=== PATIENT | female | born 1940 | race Caucasian/White ===

== ENCOUNTER 2020-01-04 05:21 | Inpatient (IN) | payer MEDICARE, SELFPAY ==
--- NOTE | 2020-01-03 08:50 | EKG12_ITS ---
Test Reason : PRE-OP Blood Pressure : / mmHG Vent. Rate : 090 BPM Atrial Rate : 093 BPM P-R Int : 000 ms QRS Dur : 074 ms QT Int : 348 ms P-R-T Axes : 000 -48 079 degrees QTc Int : 425 ms Atrial fibrillation Left axis deviation Nonspecific ST and T wave abnormality Abnormal ECG Confirmed by JAIDEN BENAVIDES, NATACHA ([id number]), production editor NABEEL RAGLAND ([id number]) on 01/04/2020 10:58:20 AM Referred By: Varun Chopra Confirmed By:NATACHA HWANG MD
[2020-01-03 09:04] LABS: Hemoglobin 14.7 g/dL (12.0-15.0); Mean Corp Hgb Conc 32.7 g/dL (32-36); Mean Corpuscular Hgb 29.6 pg (27.0-32.0); Mean Corpuscular Volume 90.7 fL (81-99); Mean Platelet Vol. 11.3 fl (6.2-12.0); Platelet Count 242 K/mm3 (150-450); RBC Distribution Width CV 13.2 % (11.6-14.6); RBC Distribution Width SD 43.8 fl (35.1-43.9); Red Blood Count 4.96 M/mm3 (4.2-5.4); White Blood Count 7.9 K/mm3 (4.4-11.0)
[2020-01-03 09:12] LABS: International Normalized Ratio 1.1; Prothrombin Time (Protime)PT. 13.7 SECONDS (11.7-14.9)
[2020-01-03 09:13] LABS: Partial Thromboplast Time 27.8 Seconds (24.1-36.2)
[2020-01-03 09:43] LABS: Anion Gap 5 (5-15); BUN 19 mg/dL (7-18); BUN/Creat Ratio 15.6 RATIO (10-20); Calcium,Total 9.5 mg/dL (8.5-10.1); Chloride 101 mmol/L (98-107); Creatinine, Serum 1.22 mg/dL (0.55-1.02); EST Glomerular Filtration Rate 45 mL/min (>60); Est Glom Filt Rate - Afr Amer 55 mL/min (>60); Glucose 105 mg/dL (74-106); Potassium 3.5 mmol/L (3.5-5.1); Sodium Level 137 mmol/L (136-145)
[2020-01-03 09:47] LABS: AST(SGOT) 19 U/L (15-37); Alanine Aminotransfer ALT/SGPT 22 U/L (13-56); Albumin, Serum 3.7 g/dL (3.2-5.0); Alkaline Phosphatase 76 U/L (45-117); Globulin 4.5 g/dL (2.2-4.2); Protein, Total 8.2 g/dL (6.4-8.2); Thyroid Stim Hormone (TSH) 2.94 uIU/mL (0.358-3.74)
[2020-01-04] VITALS (25 sets, daily range): BP systolic 122–158; BP diastolic 53–86; PULSE 61–102; RESP 14–18; TEMP 36.3–36.9; O2SAT 92–99; BMI 29.5
--- NOTE | 2020-01-04 05:49 | HP.PCM_ITS ---
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 Accompanied by: Is patient in pain?: No Allergies erythromycin base Adverse Reaction (Verified 12/28/19 13:47) Nausea/Vom/Diarrhea metronidazole Adverse Reaction (Verified 12/28/19 13:47) Swelling Medications Calcium Carb/Vitamin D [Os-Juanito 500MG + D] 1 tab PO BIDCM 08/12/14 [History Confirmed 12/28/19] Levothyroxine Sodium [Levoxyl] 50 mcg PO DAILY 08/12/14 [History Confirmed 12/28/19] Lorazepam [Ativan] 0.5 mg PO BID PRN PRN 08/12/14 [History Confirmed 12/28/19] Multivitamins,Therapeutic [Multivitamin] 1 tab PO DAILY 08/12/14 [History Confirmed 12/28/19] apixaban 5 mg tablet 5 mg PO BID 12/28/19 [History Confirmed 12/28/19] aspirin 81 mg tablet,delayed release 81 mg PO DAILY 12/28/19 [History Confirmed 12/28/19] ergocalciferol (vitamin D2) 1,250 mcg (50,000 unit) capsule 1,250 mcg PO QWEEK 12/28/19 [History Confirmed 12/28/19] metoprolol tartrate 50 mg tablet 50 mg PO DAILY 12/28/19 [History Confirmed 12/28/19] nifedipine 60 mg tablet,extended release 24 hr 60 mg PO DAILY 12/28/19 [History Confirmed 12/28/19] pravastatin 20 mg tablet 10 mg PO QHS tab 12/28/19 [History Confirmed 12/28/19] triamterene 37.5 mg-hydrochlorothiazide 25 mg capsule 1 cap PO DAILY 12/28/19 [History Confirmed 12/28/19] [facility] Medical History (Updated 12/28/19 @ 15:[address] Varun Chopra MD) Carotid stenosis, symptomatic w/o infarct (Acute) Arthritis (Acute) Atrial fibrillation (Acute) Carotid stenosis (Acute) Heart disease (Acute) History of breast cancer (Acute) TIA (transient ischemic attack) (Acute) Thyroid disease (Acute) COPD (chronic obstructive pulmonary disease) (Chronic) Hypertension (Chronic) Surgical History (Updated 12/28/19 @ 13:41 by Estephanie Oliveira) History of appendectomy (Acute) History of left total mastectomy (Acute) Family History (Updated 12/28/19 @ 13:44 by Estephanie Oliveira) Sister Arthritis Mother Diabetes CVA (cerebral vascular accident) Father Heart disease Diabetes Brother Diabetes Social History (Updated 12/28/19 @ 15:[address] Varun Chopra MD) Smoking Status: Former smoker alcohol intake: never substance use type: does not use HPI HPI HPI: ALEXANDREA GAN, is a 79 F who presents to the office today for surgical consultation regarding symptomatic progressive stenosis of her right extracranial internal carotid artery. Over the weekend she had an episode lasting about 20 minutes of transient speech a aphasia. Upon discussing things with there is apparent that this is not the first time that she has had such an event. There is evidence that in 2010 she had concern regarding a TIA involving the right carotid for which she was sent to [facility]. On March 03, [address] angiography the neck which showed heavily calcified plaque in the proximal right internal carotid with 65 to 70% stenosis at that time. On September 18, 2014 at [place] she had a MR I of the brain and MRA of the brain and carotids. There was felt to be 50% stenosis of the right internal carotid. In [address] angiography of the right neck showing 55 to 70% narrowing of the right carotid. She had carotid duplex imaging additionally November 2016 suggesting almost 70% stenosis of the right internal carotid. After this most recent episode on December 10, 2019 at [facility] she had carotid duplex imaging suggesting peak systolic velocity within the proximal right internal carotid at 364 cm/s with end-diastolic velocity of 62. This was felt be greater than 70% stenosis. On the left the internal carotid artery is felt to be less than 50% stenosis. According to the patient she was initiated on Eliquis therapy starting December 13, 2019. 5 mg twice daily. She was chronically on metoprolol and apparently started taking pravastatin on November 22, 2019. She has been on low strength aspirin therapy. She states that her original episode is 1 of not being able to speak though she could hear and try to project the words. This lasted about 20 minutes. She states that intermittently she has just not felt well since that time but she is very nonspecific. She states that during the episode she had weakness of her left hand and thumb. She denies chest pain or shortness of breath. No fever or chills. No weight loss. She denies any history of myocardial infarction. The patient is referred by her primary care physician Dr. Mancia and a written copy of my surgical consult and recommendations will be returned to him HPI HPI HPI: ALEXANDREA GAN, is a 79 F who presents to the office today for ROS General General: Yes fatigue and breast cancer; no weight change, appetite, colon cancer or weakness HEENT HEENT: No difficulty swallowing, eye injury, eye surgery, swollen glands or hoarseness Endo Endocrine: Yes thyroid disease; no diabetes mellitus, thyroid cancer, Hair loss, heat intolerance or cold intolerance Skin Skin: No rash or changing moles Breast Breast: No left breast lump, right breast lump, nipple discharge, breast pain, abnormal mammogram, abnormal US or breast enlargement Musc Musculoskeletal: No back problems, arthritis, rheumatoid arthritis, gout or joint pain Cardio Cardiovascular: Yes heart disease, atrial fibrillation and high blood pressure; no murmur, pacemaker, heart attack, heart stent, palpitations, shortness of breat with exertion or chest pain Psych Psychiatric: No depression, anxiety or hearing voices Resp Respiratory: No shortness of breath, No sleep apnea, No cough, Yes COPD, No asthma, No emphysema, No wheezing Gastro Gastrointestinal: No abdominal pain, No nausea or vomiting, No diarrhea, No constipation, No blood in stool, No acid reflux, No hemorrhoids, No ulcers, No gallbladder problem, No black,tarry stools Gwyn Hematologic: Yes blood thinners, No blood disorders, No bleeding, No anemia, No blood clots Neuro Neurologic: No system reviewed and no additional complaints, except as docu, No as per HPI, No abnormal walking, No abnormal hearing, No abnormal movements, No abnormal speech, No behavioral changes, No burning sensations, No confusion, No seizure-like activity, No unsteadiness, No dizziness, No localized weakness, No frequent falls, No headache(s), No lack of coordination, No loss of vision, No memory loss, No numbness, No other visual disturbances, No radiating pain, No restless legs, No sensory deficit, No fainting, No tingling, No tremor(s), No weakness, Yes other (stroke/TIA) Exam Const General: cooperative, healthy appearing, comfortable, no acute distress Nutritional Appearance: average body habitus Orientation: alert, awake HENDE Head: normal to inspection Eyes General: appearance normal, both eyes and all related structures Neck Neck: normal visual inspection Other: 2+ carotid pulses bilaterally. 3/6 bruit on the right. Chest Breast Palpation: No nipple discharge Other: Evidence of left mastectomy Resp Effort & Inspection: normal respiratory effort Auscultation: clear to auscultation bilaterally Cardio Rate: regular rate Rhythm: regular rhythm Heart Sounds: no murmurs GI Palpation: soft, no hepatosplenomegaly Auscultation: normal bowel sounds Skin Other: Area of ecchymosis right dorsal distal forearm Neuro Cognition: normal cognition Extrem General: no calf tenderness Psych Affect: normal affect Assessment & Plan Problems 1. Symptomatic stenosis of right carotid artery without infarction I65.21 Plan It seems that the patient has progressive right carotid stenosis and progressively symptomatic. As best I can tell from her history she had symptoms dating back to 2010 but by her report it was suggested to her that she did not require surgical intervention at that setting. Clearly based upon the imaging that on provided she has had significant progressive stenosis of her right internal carotid and that would appear to correlate with her left hand weakness. I propose for her a right carotid endarterectomy with patch angioplasty and I have discussed technique, benefit, risk and alternatives. Absolutely no guarantees of success have been offered. We compared and contrasted this procedure with carotid artery stenting. The patient is aware that I do not perform that procedure. She has been offered opportunity for referral elsewhere. She is elected to stay locally. We will have her hold her Eliquis for 48 hours preoperatively. She will be maintained on her aspirin therapy. She is aware that I anticipate utilizing an arterial line for monitoring. She has had an opportunity to ask and have questions answered. We will schedule and expedite her care. I very much appreciate the kind opportunity of assisting with her surgical management. Cc: Dr.Latouf Varun Chopra M.D., F.A.C.S. Coding Level of Care Code 05440 Diagnoses Symptomatic stenosis of right carotid artery without infarction I65.21 ??Laterality: right I have re-examined the patient. There are no clinical changes since date of exam. Procedure Criteria Procedure Type: Essential Procedure Essential: Yes Criteria Statement: On 09/28/2019 the [place] Department of [facility] ([facility]) Public Order signed by [facility] Director Virginia Joseph M.D., regarding the Management of Non-Essential Surgeries and Procedures for the purpose of preserving Personal Protective Equipment (PPE) and critical hospital capacity and resources within [place] went into effect as of 09/29/2019 at 5:00PM. According to the [facility] Public Order: This action will remain in full force and effect until the State of Emergency declared by the Governor no longer exists or the Director of the [facility] rescinds or modifies this Order. This [facility] order stated all non-essential or elective surgeries and procedures that utilize PPE should be delayed unless there is undue risk to the current or future health of a patient. After reviewing the aforementioned [facility] Public Order and the patient's clinical case, I have determined that the scheduled procedure meets the criteria to go forward. Risk to Patient if Procedure Delayed: Threat to patient's life if surgery or procedure is delayed
--- NOTE | 2020-01-04 06:28 | OP.PCM_ITS ---
Problem List (1) Carotid stenosis, symptomatic w/o infarct Status: Acute Qualifiers: Report of Operation Date of Procedure: 01/04/20 Pre-Operative Diagnosis: Symptomatic right internal carotid high-grade severe stenosis Post-Operative Diagnosis: Same Surgery/Procedure Performed:: Right radial arterial line placement. Right carotid endarterectomy with bovine patch angioplasty. Vascu-Guard 0.8 x 8 cm patch. Reference number the [id number]. Lot number [id number]. PN number [id number] Description of Surgical Findings:: At the bedside Michael test performed demonstrating adequate inflow. The right wrist was gently extended prepped with Betadine. Under ultrasound guidance 1% lidocaine was instilled for local anesthetic. A total of 0.7 cc was used. Then under ultrasound guidance a 20-gauge inch cath was inserted. Seldinger wire was used to advance it. It was secured to the skin. It was attached to pressure tubing. Good waveform was obtained. OpSite dressing a folded 4 x 4 and Brianna wrap applied. The hand was viable at the completion pink and warm patient had no complaints. She was subsequently taken to the operating for planned right carotid endarterectomy. Timeout and informed consent was obtained. The patient underwent general endotracheal intubation anesthesia. Ancef 2 g were given intravenously. The right neck was sterilely prepped and draped. An oblique incision was made along the anterior border of the sternocleidomastoid. Sharp dissection was carried down through the subcutaneous tissue. Hemostasis attained with electrocautery where indicated. The sternocleidomastoid was reflected laterally. The external jugular vein was ligated with 3-0 Vicryl ligatures. Dissection was formed directly down upon the carotid bulb. The internal jugular vein was retracted laterally. Lymphatic vessels and side veins were secured with hemoclips. Sharp and blunt dissection was used to identify the internal carotid common carotid and external carotid. The common carotid was secured with a Sutton tie of Dacron tape. The internal carotid with a Dacron tape and Lety tourniquet. The external carotid with a vessel loop. The superior thyroid with a Sutton tie 3-0 Vicryl. The patient then received 8000 units of heparin. After adequate circulation time peripheral vascular clamps were placed on the internal common and external carotid. 11 blade was used to make an atriotomy this was very difficult due to the dense calcific nature of the carotid bulb. This was extended with Sutton scissors. A #10 USCI style shunt was placed cephalad and proximally. Time to place the shunt approximately 3 minutes. Then an endarterectomy was performed layer of the external elastic lamina. It was sharply transected proximally it was carefully feathered at the internal carotid this was difficult because of posterior plaque and it was continued to extend. I had to make a couple adjustments and continue to shave that plaque. I placed two 7-0 Prolene sutures to help secure it. A inversion enterectomy had been performed of the external carotid. Further debris was carefully removed with fine forceps. The vessel was irrigated. A Vascu-Guard bovine patch 0.8 x 8 cm was shaped deformed. Patch angioplasty was formed with a running 6-0 Prolene. Prior to completion the vessel was irrigated and the shunt was removed there was good retrograde flow from the internal/external carotids and good antegrade flow from the common. The patch angioplasty was completed. Initial flow was instituted from the external carot id common carotid find the internal carotid. Hemostasis was assured with a couple 7-0 Prolene sutures. Hemostasis was now nicely intact there was good flow. The cerebral oximetry remained constant throughout. Patient then received aliquots total 20 mg of protamine. The wound was closed with a deep layer of interrupted 3-0 Vicryl a running layer 3-0 Vicryl for platysma and then a running septic or 5-0 Vicryl for the subdermal tissues. Ashley-incisional area was anesthetized with 0.5% Marcaine total 10 cc. Steri-Strip Telfa and tape dressings applied. Sponge and instrument and needle counts were reported to the surgeon to be correct. Blood loss 200 cc. She appeared awake neurologically intact on the table and was taken to the recovery room satisfactory edition no apparent complication. Specimen plaque. Drains none. Blood loss 200 cc. Type of Anesthesia:: General Anesthesiologist: Soren Rabago
--- NOTE | 2020-01-04 06:32 | DCINST_ITS ---
Discharge Diet: Light diet - advance as tolerated - if you have questions about your diet instructions, please talk to you doctor. Discharge Activity: May Not Drive - for 1 week or while taking narcotic pain medicine. May shower in (days): 3 - May shower on Friday Lifting Restrictions: 10 pounds Call your doctor if your incision/area has: Continuous Slow Oozing, Sudden Increased Bleeding, Increased Pain/ Swelling, Increased Redness, Foul Smelling Discharge Call your doctor if you observe: Fever of 101 or Higher Suture Line Care: Avoid Pulling/Pushing, Avoid Pinching/Bending Additional Dressing/Incision Instructions:: Leave the Steri-Strips in place for 1 week. You may reapply dry gauze and tape as needed to protect the incision from clothing. [id number] pain medication like acetaminophen or Tylenol or ibuprofen or Advil or Aleve can be utilized for pain. You may resume your daily low-dose aspirin therapy. You may resume your Eliquis therapy on Friday, January 07, 2020 Allergies/Adverse Reactions: Allergies erythromycin base Adverse Reaction (Verified 12/31/19 08:07) Nausea/Vom/Diarrhea metronidazole Adverse Reaction (Verified 12/31/19 08:07) Swelling Medications to take at Discharge Calcium Carb/Vitamin D [Os-Juanito 500MG + D] 1 tab PO BIDCM 08/12/14 Levothyroxine Sodium [Levoxyl] 50 mcg PO DAILY 08/12/14 Lorazepam [Ativan] 0.5 mg PO BID PRN PRN 08/12/14 Multivitamins,Therapeutic [Multivitamin] 1 tab PO DAILY 08/12/14 aspirin 81 mg tablet,delayed release 81 mg PO DAILY 12/28/19 ergocalciferol (vitamin D2) 1,250 mcg (50,000 unit) capsule 1,250 mcg PO MO 12/28/19 metoprolol tartrate 50 mg tablet 50 mg PO DAILY 12/28/19 nifedipine 60 mg tablet,extended release 24 hr 60 mg PO DAILY 12/28/19 pravastatin 20 mg tablet 10 mg PO QHS tab 12/28/19 triamterene 37.5 mg-hydrochlorothiazide 25 mg capsule 1 cap PO DAILY 12/28/19 Acetaminophen [Acetaminophen Extra Strength] 500 mg PO Q6H PRN PRN 12/31/19 Elliquis 5 mg PO BID 12/31/19 Loperamide [Imodium] 2 mg PO Q4H PRN PRN 12/31/19 Orders to be completed after discharge: 12 Lead EKG [[facility]] Time Frame: 12/31/19, Location: None Selected Primary Care Physician: Charmaine Mancia MD [Primary Care Provider] - Test Results: Test results from this visit will be discussed in further detail at your follow- up appointment, if applicable. Please Follow Up With: Varun Chopra MD - [phone] When: Call to make an appointment to be seen in about 10 days.
[2020-01-04 06:40] LABS: ACT Activated Clotting Time 120 sec (74-137)
[2020-01-04] MEDS: Lactated Ringers 1,000 ML 30 ML IV ×3 (06:40→12:22)
[2020-01-04] MEDS: Cefazolin 2 GM in 0.9% Normal Saline 100 ML IV (07:29)
--- NOTE | 2020-01-04 07:30 | PLAQ_PTH ---
PATIENT: ALEXANDREA GAN I LOC: [facility] U#:[id number] AGE/SX: 79/F ROOM: IL313 RE01/04/[address]: Dr. Varun Chopra MD : [id number] BED: 1 DIS: 01/05/2020 SPEC #: [id number] RECD: 01/04/20 09:30 STATUS: EDY PRADOPorfirio #: [id number] DESIRE: 01/04/20 07:[address]: Varun Chopra DEPT: SURGICAL PATHOLOGY RECD BY: Marcie Yadav ENTERED: 01/04/20 09:58 SP TYPE: PLAQUE OTHR DR: Dr. Charmaine Mancia MD Tissues: PLAQUE Procedures: Decalcification bone/plaque Surgery Specimen Level III HEADER OPERATION: Right carotid endarterectomy with patch angioplasty PRE-OP DIAGNOSIS: Symptomatic stenosis of right carotid artery TISSUE SUBMITTED: Right carotid artery plaque MICROSCOPIC DIAGNOSIS Right carotid artery plaque, endarterectomy: Atherosclerotic tissue with focal calcifications (plaque). SJ:dina 01/07/20 GROSS DESCRIPTION Received in fixative is one container labeled with the patient's name and designated carotid artery plaque. The specimen consists of an elongated fragment of yellow-swann calcific tissue measuring 2.7 cm in length and 0.6 cm in diameter. The specimen is sectioned and totally submitted in one cassette after decalcification. / AM:dina 01/04/20 TC:5 CPT: 25688, 72518
[2020-01-04 08:46] LABS: ACT Activated Clotting Time 257 sec (74-137)
[2020-01-04] MEDS: Heparin Injection (Vial) 5,000 UNIT/ML VIAL 5000 UNIT (09:00)
[2020-01-04 09:21] LABS: ACT Activated Clotting Time 230 sec (74-137)
[2020-01-04] MEDS: Bupivacaine Mpf 0.5% 30 ML VIAL (09:32)
--- NOTE | 2020-01-04 10:34 | SUR.PHASEI ---
0950 PT IN PACU POST RT CAROTID , NEURO ASSESSMENT PERFORMED. RT SIDE TONGUE SLIGHT DEVIATION NOTED.
[2020-01-04] MEDS: Triamterene 37.5MG/Hctz 25MG Capsule 1 CAP PO (15:17)
[2020-01-04] MEDS: Fluconazole 100 MG Tablet PO (15:17)
[2020-01-04] MEDS: NIFEdipine 60 MG Tablet PO (15:17)
[2020-01-04] MEDS: Metoprolol Tartrate 50 MG Tablet PO (15:18)
[2020-01-04] MEDS: Cefazolin 1 GM/50 ML BAG IV (16:04)
[2020-01-04] MEDS: Pravastatin 20 MG Tablet 10 MG PO (22:02)
[2020-01-05] VITALS (10 sets, daily range): BP systolic 121–144; BP diastolic 60–79; PULSE 60–100; RESP 16–18; TEMP 36.6–36.9; O2SAT 2–97
[2020-01-05] MEDS: Cefazolin 1 GM/50 ML BAG IV (00:26)
[2020-01-05] MEDS: Lactated Ringers 1,000 ML 30 ML IV (00:29)
[2020-01-05] MEDS: Levothyroxine 50 MCG Tablet PO (05:55)
--- NOTE | 2020-01-05 05:57 | PCM.CAROT ---
General Carotid Note - Subjective Post-Op Day #: 1 - Objective Vital Signs Temp Pulse Resp BP Pulse Ox 98.4 F 72 16 121/60 H 2 01/05/20 02:00 01/05/20 02:00 01/05/20 02:00 01/05/20 02:00 01/05/20 03:01 Laboratory Tests Past 24 Hrs 01/04/20 01/04/20 01/04/20 06:31 08:33 09:10 Activated Clotting Time 120 257 H 230 H Neck: Supple, Trachea Midline Neurological: - - No weakness right hypoglossal. Speech is clear Cardiovascular: Regular rate, Regular Rhythm - Patient noticed to be on nasal prong oxygen overnight. She has ambulated to the bathroom. She needs to be tested with ambulation in the halls. Plan discharge this morning.
[2020-01-05] MEDS: 0.9% Saline Lock 10 ML Syringe IV (06:49)
[2020-01-05] MEDS: Calcium Carb/Vitamin D 1 TABLET Tablet PO (08:38)
[2020-01-05] MEDS: Aspirin E.C. 81 MG Tablet PO (08:38)
[2020-01-05] MEDS: Metoprolol Tartrate 50 MG Tablet PO (08:38)
[2020-01-05] MEDS: NIFEdipine 60 MG Tablet PO (08:40)
[2020-01-05] MEDS: Triamterene 37.5MG/Hctz 25MG Capsule 1 CAP PO (08:40)
--- NOTE | 2020-01-05 08:51 | CASEMGMT ---
Addendum entered by Pritesh Tidwell 01/05/20 13:07: [facility]: PH: [phone] Addendum entered by Pritesh Tidwell 01/05/20 13:00: Spoke with [facility]. They are able to accept pt and start of care will be tomorrow 01/05. [facility] made aware that pt's daughter would like to be contacted. Call placed to Janna, pt's daughter, and she was made aware [facility] is able to accept pt. She was provided with contact number for [facility] and made aware they will be contacting her. Addendum entered by Pritesh Tidwell 01/05/20 11:17: Spoke w/pt's daughter, Janna, re: Home oxygen. She was made aware portable O2 tank will be delivered to pt's room prior to discharge and then arrangements will be made for delivery to the home. Janna requests that [facility] contact her re: home delivery. Janna voiced concerns re: pt's COPD, new oxygen, Hx: A-fib, dressing to her neck from the surgery, and medications and Janna states she would like C for pt. Janan stated, We can't be there with her 03/02. Janna made aware that C nurse would typically only make Home visits once a week, but that they can do teaching/reviewing of medications and teaching re: diagnosis. Janna states she does want HHC for her mother. Her 1st choice of HHC is [facility]. Janna made aware [facility] only goes 30 min radius and pt may not be in the area they covered. Janna states if [facility] is not able to take her, that she has no other preferences as long as they are able to accept pt's insurance. Janna also inquiring about pulmonology consult. Janna made aware to talk with pt's PCP re: this. RN CM to room to talk with pt. Pt made aware her daughter would like HHC for her and she agreeable to HHC and states has no preference of HHC agency. Call placed to [facility] and they were made aware to call pt's daughter, Janna, to make arrangements for Home O2 delivery. Call placed to [facility] and spoke with Cintia. Pt's address/location is too far and they do not service her area. Call placed to [facility] in [place] and referral made. Referral packet faxed to them at this time. Addendum entered by Pritesh Tidwell 01/05/20 10:07: Ambulatory pulse ox has been completed and pt qualifies for O2 @ 2L/M with exertion. Pt provided list of local DME companies and [facility]. Script obtained from Dr Chopra for O2, faxed to [facility] along w/demographics and insurance info. Call placed to [facility] and she was made aware pt is discharging today. Awaiting oxygen delivery to room. RN, Theron, dustin. Original Note: RN CM HYDRO OPERATOR CM to room to meet with patient for initial transition planning/care coordination assessment. RAAD TAPIA introduced self and role at [facility]. Pt voices understanding and consents to assessment at this time. Pt resting in bed in no distress at this time. Pt is A/O at this time and answers all questions appropriately. Care providers, pharmacy, and demographics verified/updated at this time. PCP: Dr Mancia Specialists: Dr Chantal Chopra Preferred Pharmacy: [facility] Retail Insurance: [employer] Prescription Benefit: Yes Living Will/HPOA: Has both LW and Healthcare POA, who is her daughter, Janna Alicia LNOK: DtrJanna Living Arrangements: Lives alone. Independent. Transportation: Boyfriend or daughter DME: States has the following DME: [employer]. Ambulates w/out DME Pt states no need for further DME at this time. HHC/SNF: Hx [facility] a few years ago. No history of HHC. Denies needs. Pt wishes to return home and states has no concerns with going home at time of discharge. CM to follow for home oxygen needs and any further discharge planning/needs. Pt voices no further concerns/needs at this time. Advised pt to ask for CM if any further questions/concerns/needs arise. Voices understanding. PLAN: Home Will need amb pulse ox prior to discharge. Theron RN, aware. Eun CARCAMO RN, CM
--- NOTE | 2020-01-05 09:38 | PHA.DC.MR ---
Pharmacy Service has performed discharge medication reconciliation for this patient. The patient's discharge medication list was reviewed for discrepancies and discrepancies were resolved. Home Medications Calcium Carb/Vitamin D [Os-Juanito 500MG + D] 1 tab PO BIDCM 08/12/14 Levothyroxine Sodium [Levoxyl] 50 mcg PO DAILY 08/12/14 Lorazepam [Ativan] 0.5 mg PO BID PRN PRN 08/12/14 Multivitamins,Therapeutic [Multivitamin] 1 tab PO DAILY 08/12/14 aspirin 81 mg tablet,delayed release 81 mg PO DAILY 12/28/19 ergocalciferol (vitamin D2) 1,250 mcg (50,000 unit) capsule 1,250 mcg PO MO 12/28/19 metoprolol tartrate 50 mg tablet 50 mg PO DAILY 12/28/19 nifedipine 60 mg tablet,extended release 24 hr 60 mg PO DAILY 12/28/19 pravastatin 20 mg tablet 10 mg PO QHS tab 12/28/19 triamterene 37.5 mg-hydrochlorothiazide 25 mg capsule 1 cap PO DAILY 12/28/19 Acetaminophen [Acetaminophen Extra Strength] 500 mg PO Q6H PRN PRN 12/31/19 Elliquis 5 mg PO BID 12/31/19 Loperamide [Imodium] 2 mg PO Q4H PRN PRN 12/31/19
--- NOTE | 2020-01-05 11:09 | NURSING ---
Janna Francisco, daughter was called with update, had many questions regarding o2 delivery, she was referred to Case managment and Pritesh called her .,
[2020-01-05] MEDS: Acetaminophen 500 MG Tablet PO (11:30)
== END 2020-01-05 13:40 | disposition home health service (06) | DRG 38 ==
LOC: ACINP 05:23 → MS3 10:13
PROVIDERS: Anesthesiology; Admitting Provider Surgery; PCP Internal Medicine; Referring Provider Surgery; Visit Provider Surgery
PROC: 03CM0ZZ Extirpation of Matter from Right External Carotid Artery, Open Approach (ICD-10-PCS; CPT 35301; principal; 2020-01-04 07:10)
DX: I65.21 Occlusion and stenosis of right carotid artery (principal); I69.854 Hemiplegia and hemiparesis following other cerebrovascular disease affecting left non-dominant side; R47.01 Aphasia; I48.91 Unspecified atrial fibrillation; J44.9 Chronic obstructive pulmonary disease, unspecified; I10 Essential (primary) hypertension; E07.9 Disorder of thyroid, unspecified; E78.00 Pure hypercholesterolemia, unspecified; M19.90 Unspecified osteoarthritis, unspecified site; F41.9 Anxiety disorder, unspecified; Z78.0 Asymptomatic menopausal state; Z79.01 Long term (current) use of anticoagulants; Z79.82 Long term (current) use of aspirin; Z79.899 Other long term (current) drug therapy; I69.828 Other speech and language deficits following other cerebrovascular disease; Z85.3 Personal history of malignant neoplasm of breast; Z87.891 Personal history of nicotine dependence
CPT/HCPCS: 36415; 80048; 80076; 84443; 85027; 85347; 85610; 85730; 87635; 88304; 88311; 93005; 99251; G2023; J7040; J7120; A4216; G0463; J2405; U0003

== ENCOUNTER → 2020-02-03 08:49 | Outpatient (CLI) | payer MEDICARE, SELFPAY ==
[2020-01-04 13:46] VITALS: BMI 29.5
--- NOTE | 2020-02-03 08:52 | CDUL_ITS ---
Reason For Study: carotid stenosis Rt. Velocities/BP Prox CCA 95.6/18.6 cm/sec. Mid CCA 86.5/14.7 cm/sec. Dist CCA 96.9/13.4 cm/sec. Prox ICA 89.1/13.4 cm/sec. Mid ICA 159.5/37.1 cm/sec. Dist ICA 128.4/33.4 cm/sec. Rt. ICA/CCA = 1.8. Prox ECA 124.3/10.8 cm/sec. Rt. Vert. 73.6/13.3 cm/sec. Right Extracranial There is intimal thickening but no significant atherosclerotic plaque noted in the right common carotid artery. There is intimal thickening but no significant atherosclerotic plaque noted in the right internal carotid artery. There is intimal thickening but no significant atherosclerotic plaque noted in the right external carotid artery. Antegrade flow is noted in the right vertebral artery. Procedure Carotid Duplex [id number]. The exam was diagnostic. Exam performed in department. Interpretation Summary Postoperative changes of the right carotid bulb and proximal internal carotid artery with slight tortuosity noted. No hemodynamically significant plaque within the right internal carotid artery with 50 to 69% stenosis based upon velocity. <50% stenosis right external carotid Patent, antegrade right vertebral Ordering Physician: Varun Chopra Performed By: Dayday Nair RVT and Student
== END ==
PROVIDERS: PCP Internal Medicine; Referring Provider Surgery; Visit Provider Surgery
DX: I65.23 Occlusion and stenosis of bilateral carotid arteries (principal)
CPT/HCPCS: 93882

== ENCOUNTER → 2021-01-17 08:49 | Outpatient (CLI) | payer MEDICARE, SELFPAY ==
[2020-01-04 13:46] VITALS: BMI 29.5
--- NOTE | 2021-01-17 08:53 | CDU_ITS ---
Reason For Study: Bilateral carotid stenosis Rt. Velocities/BP Lt. Velocities/BP Prox CCA 78.6/13.4 cm/sec. Prox CCA 58.1/11.4 cm/sec. Mid CCA 78.6/12.1 cm/sec. Mid CCA 64.2/13.9 cm/sec. Dist CCA 86.5/21.3 cm/sec. Dist CCA 66.7/15.1 cm/sec. Prox ICA 90/37.1 cm/sec. Prox ICA 59.3/12.6 cm/sec. Mid ICA 157.6/55.3 cm/sec. Mid ICA 80.2/22.5 cm/sec. Dist ICA 117.4/35.3 cm/sec. Dist ICA 63.9/17.6 cm/sec. Rt. ICA/CCA = 2.01. Lt. ICA/CCA = 1.20. Prox ECA 95.6/10.8 cm/sec. Prox ECA 134.5/13.8 cm/sec. Rt. Vert. 76.2/20.1 cm/sec. Lt. Vert. 63/17.6 cm/sec. Right Extracranial There is intimal thickening but no significant atherosclerotic plaque noted in the right common carotid artery. There is homogeneous, smooth atherosclerotic plaque noted in the right internal carotid artery. There is intimal thickening but no significant atherosclerotic plaque noted in the right external carotid artery. Antegrade flow is noted in the right vertebral artery. Left Extracranial There is heterogeneous, irregular atherosclerotic plaque noted in the left common carotid artery. There is heterogeneous, irregular atherosclerotic plaque noted in the left internal carotid artery. There is heterogeneous, irregular atherosclerotic plaque noted in the left external carotid artery. Antegrade flow is noted in the left vertebral artery. Procedure Carotid Duplex [id number]. This is a Carotid Duplex examination using B-mode, color flow and specral Doppler. Exam performed in department. VL/Carotid Duplex Ultrasound Interpretation Summary Postoperative changes of the right carotid bulb and proximal internal carotid a rtery with 50 to 69% stenosis of the mid internal carotid artery Less than 50% stenosis right external carotid artery Irregular calcific plaque in the proximal left internal carotid artery and exte rnal carotid artery Less than 50% stenosis left internal carotid artery Less than 50% stenosis left external carotid artery Patent and antegrade vertebrals bilaterally No change of the right internal carotid artery from the previous examination of February 03, 2020 Ordering Physician: Varun Chopra Referring Physician: Charmaine Mancia Performed By: Neha Anderson RVT
== END ==
PROVIDERS: PCP Internal Medicine; Referring Provider Surgery; Visit Provider Surgery
DX: I65.23 Occlusion and stenosis of bilateral carotid arteries (principal)
CPT/HCPCS: 93880

== ENCOUNTER → 2022-03-01 | Outpatient (CLI) | payer MEDICARE, SELFPAY ==
--- NOTE | 2022-03-01 08:55 | CDU_ITS ---
Reason For Study: CAROTID STENOSIS Rt. Velocities/BP Lt. Velocities/BP Prox CCA 71.2/15.1 cm/sec. Prox CCA 67.7/13.8 cm/sec. Mid CCA 70.3/15.5 cm/sec. Mid CCA 76.4/10.5 cm/sec. Dist CCA 67.7/12.9 cm/sec. Dist CCA 77.5/13.8 cm/sec. Prox ICA 108.9/30.3 cm/sec. Prox ICA 83.1/14.9 cm/sec. Mid ICA 163.1/48.0 cm/sec. Mid ICA 76.5/24.8 cm/sec. Dist ICA 114.3/28.5 cm/sec. Dist ICA 72.1/19.3 cm/sec. Rt. ICA/CCA = 163.1/70.3=2.3. Lt. ICA/CCA = 83.1/76.4=1.1. Prox ECA 73.5/6.5 cm/sec. Prox ECA 121.6/13.9 cm/sec. Rt. Vert. 71.0/14.9 cm/sec. Lt. Vert. 62.2/18.2 cm/sec. Right Extracranial There is intimal thickening but no significant atherosclerotic plaque noted in the right common carotid artery. There is homogeneous, smooth atherosclerotic plaque noted in the right internal carotid artery. There is intimal thickening but no significant atherosclerotic plaque noted in the right external carotid artery. Antegrade flow is noted in the right vertebral artery. Left Extracranial There is heterogeneous, irregular atherosclerotic plaque noted in the left common carotid artery. There is heterogeneous, irregular atherosclerotic plaque noted in the left internal carotid artery. There is heterogeneous, irregular atherosclerotic plaque noted in the left external carotid artery. Antegrade flow is noted in the left vertebral artery. Procedure Carotid Duplex [id number]. The study was technically difficult. Exam performed in department. VL/Carotid Duplex Ultrasound Interpretation Summary Postoperative changes of the right carotid bulb and proximal internal carotid a rtery with smooth plaque noted and 50 to 69% stenosis. Less than 50% stenosis right external carotid artery Irregular calcific plaque at the proximal left internal carotid artery with les s than 50% stenosis Less than 50% stenosis left external carotid artery Patent and antegrade vertebral arteries bilaterally Findings are unchanged from the previous examination of January 17, 2021 Ordering Physician: Varun Chopra Referring Physician: Charmaine Mancia Performed By: Estephanie Escalera, TORY, RVT
== END | disposition home or self-care (01) ==
PROVIDERS: PCP Internal Medicine; Referring Provider Surgery; Visit Provider Surgery
DX: I65.23 Occlusion and stenosis of bilateral carotid arteries (principal)
CPT/HCPCS: 93880

== ENCOUNTER → 2023-02-28 | Outpatient (CLI) | payer MEDICARE, SELFPAY | END | disposition home or self-care (01) | PROVIDERS: PCP Internal Medicine; Referring Provider Internal Medicine Critical Care Medicine; Visit Provider Internal Medicine Critical Care Medicine | DX: G47.33 Obstructive sleep apnea (adult) (pediatric) (principal); J44.9 Chronic obstructive pulmonary disease, unspecified | CPT/HCPCS: 95810 ==

== ENCOUNTER → 2023-03-14 | Outpatient (CLI) | payer MEDICARE, SELFPAY ==
--- NOTE | 2023-03-14 13:54 | CDU_ITS ---
Reason For Study: Carotid Stenosis Rt. Velocities/BP Lt. Velocities/BP Prox CCA 78.0/14.7 cm/sec. Prox CCA 80.9/13.4 cm/sec. Mid CCA 71.4/13.8 cm/sec. Mid CCA 52.7/10.9 cm/sec. Dist CCA 58.2/16.3 cm/sec. Dist CCA 58.8/12.2 cm/sec. Prox ICA 85.7/16.3 cm/sec. Prox ICA 89.5/23.2 cm/sec. Mid ICA 87.5/29.0 cm/sec. Mid ICA 65.8/10.9 cm/sec. Dist ICA 96.6/32.7 cm/sec. Dist ICA 77.9/12.0 cm/sec. Rt. ICA/CCA = 1.4. Lt. ICA/CCA = 1.7. Prox ECA 87.8/3.2 cm/sec. Prox ECA 140.5/7.1 cm/sec. Rt. Vert. 35.5/12.8 cm/sec. Lt. Vert. 51.5/14.6 cm/sec. Right Extracranial There is homogeneous, smooth atherosclerotic plaque noted in the right common carotid artery. There is heterogeneous, smooth atherosclerotic plaque noted in the right internal carotid artery. HX CEA. There is heterogeneous, irregular atherosclerotic plaque noted in the right external carotid artery. Antegrade flow is noted in the right vertebral artery. Left Extracranial There is heterogeneous, irregular atherosclerotic plaque noted in the left common carotid artery. There is heterogeneous, irregular atherosclerotic plaque noted in the left internal carotid artery. There is heterogeneous, irregular atherosclerotic plaque noted in the left external carotid artery. Antegrade flow is noted in the left vertebral artery. Procedure Carotid Duplex [id number]. This is a Carotid Duplex examination using B-mode, color flow and specral Doppler. The exam was diagnostic. The study was technically difficult. Exam performed in department. VL/Carotid Duplex Ultrasound Interpretation Summary Postoperative changes of the right carotid bulb and proximal internal carotid a rtery with smooth plaque noted and less than 50% stenosis Less than 50% stenosis right external carotid artery Irregular calcific plaque at the proximal left internal carotid artery with les s than 50% stenosis Less than 50% stenosis left external carotid artery Patent and antegrade vertebral arteries bilaterally No disease progression from the previous examination of March 01, 2022 Ordering Physician: Varun Chopra Referring Physician: Blanche Montano Performed By: Soren Sheriff RVT
== END | disposition home or self-care (01) ==
PROVIDERS: PCP Internal Medicine; Referring Provider Surgery; Visit Provider Surgery
DX: I65.23 Occlusion and stenosis of bilateral carotid arteries (principal)
CPT/HCPCS: 93880

== ENCOUNTER → 2023-05-14 | Outpatient (CLI) | payer MEDICARE, SELFPAY ==
--- NOTE | 2023-05-15 09:23 | PFT ---
INTRODUCTION: The patient is an 82-year-old female who presents for pulmonary function studies secondary to a diagnosis of COPD. Respiratory therapy reported good patient effort. Bronchodilators were used during testing. INTERPRETATION: Forced expiration spirometry demonstrates the presence of a moderately severe large airways obstructive ventilatory defect. There was no significant response to aerosolized bronchodilators. Spirograms are of good quality but do not plateau indicating slow emptying of the lungs. Body plethysmography was performed and revealed lung volumes to be within normal limits. Diffusing capacity by single breath CO is reduced at 30% of predicted. IMPRESSION: Irreversible moderately severe large airways obstructive ventilatory defect with severe reduction in diffusion capacity.
== END | disposition home or self-care (01) ==
PROVIDERS: PCP Internal Medicine; Referring Provider Internal Medicine Critical Care Medicine; Visit Provider Internal Medicine Critical Care Medicine
DX: J44.9 Chronic obstructive pulmonary disease, unspecified (principal)
CPT/HCPCS: 94060; 94726; 94729

== ENCOUNTER → 2023-07-10 | Outpatient (CLI) | payer MEDICARE, SELFPAY ==
--- NOTE | 2023-07-10 15:34 | MRI_ITS ---
STUDY: MRI BRAIN WITHOUT CONTRAST REASON FOR EXAM: Female, 82 years old. BLURRY VISION ORBITS, NYSTAGMUS TECHNIQUE: Standardized multiplanar fat and water weighted pulse sequences were obtained. MRI examination of the brain obtained with standard protocol including multiplanar multiecho noncontrast imaging. Contrast: No contrast administered COMPARISON: : No relevant prior comparison study available HEMISPHERES, CEREBELLUM AND BRAINSTEM: 1. The cerebral parenchyma, ventricular system, subarachnoid spaces have normal configuration and density. There is a normal gyral pattern. There is normal lovelace/white differentiation. No midline shift.. 2. There is diffuse involutional change and extensive chronic deep white matter disease. No areas fluid restriction or acute ischemic change. No hemosiderin deposition or hemorrhage noted. 3. No intraparenchymal mass, hemorrhage, or acute territorial infarct. 4. The cerebellum, brainstem, basilar and suprasellar cisterns have normal appearance. No Chiari malformation. PITUITARY: Infundibulum and pituitary have normal configuration. Midline structures appear normal. CSF SPACES: Appropriate for age. No hydrocephalus. Basal cisterns are patent. VESSELS: 1. There are normal flow voids noted in the great vessels at the skull base ORBITS AND PARANASAL SINUSES: 1. Both globes, extraocular muscles, optic nerves and retrobulbar fat appear unremarkable. 2. Paranasal sinuses are clear. BONY ELEMENTS: Bony elements of the cranial vault, facial skeleton and skull base have normal appearance. SCALP AND SOFT TISSUES: Normal appearance of the soft tissues of the scalp and the visualized face OTHER: None MRI/Brain without Contrast IMPRESSION: 1. Diffuse involutional change, extensive chronic deep white matter disease. 2. No intracranial mass, hemorrhage, or acute territorial infarct. Electronically Signed: Geronimo العلي MD at 20:16 EST ,
--- OUTSIDE RECORDS SUMMARY | 2023-07-10 15:37 | XMS RPT_ITS | CCD ---
Author Name Unknown Address [address] [place] [id number] Organization [facility] Care Team Providers Care Search Engineer Name Role Phone CHARMAINE CALLAHAN MD Primary Care Unavailable CHARMAINE CALLAHAN MD Consulting Unavailable CHARMAINE CALLAHAN MD Attending Unavailable LATCHARMAINE ROBLES MD Admitting Unavailable PROVIDER, UNKNOWN Consulting Unavailable PROVIDER, UNKNOWN Consulting Unavailable PROVIDER, UNKNOWN Consulting Unavailable CHARMAINE CALLAHAN MD Primary Care Unavailable CHARMAINE CALLAHAN MD Consulting Unavailable CHARMAINE CALLAHAN MD Attending Unavailable LATCHARMAINE ROBLES MD Admitting Unavailable PROVIDER, UNKNOWN Consulting Unavailable PROVIDER, UNKNOWN Consulting Unavailable PROVIDER, UNKNOWN Consulting Unavailable CHARMAINE CALLAHAN MD Primary Care Unavailable LATCHARMAINE ROBLES MD Attending Unavailable CHARMAINE CALLAHAN MD Admitting Unavailable CHARMAINE CALLAHAN MD Consulting Unavailable PROVIDER, UNKNOWN Consulting Unavailable PROVIDER, UNKNOWN Consulting Unavailable PROVIDER, UNKNOWN Consulting Unavailable ESTHER MARIANO MD Primary Care Unavailable ESTHER MARIANO MD Attending Unavailable CHARMAINE CALLAHAN MD Consulting Unavailable CHARMAINE CALLAHAN MD Referring Unavailable ESTHER MARIANO MD Admitting Unavailable PROVIDER, UNKNOWN Consulting Unavailable PROVIDER, UNKNOWN Consulting Unavailable PROVIDER, UNKNOWN Consulting Unavailable CHARMAINE CALLAHAN MD Consulting Unavailable ELAINA NEVILLE MD Primary Care UnavailELAINA Drake MD Attending Unavailabl ELAINA Moreland MD Admitting Unavailabl e PROVIDER, UNKNOWN Consulting Unavailable PROVIDER, UNKNOWN Consulting Unavailable PROVIDER, UNKNOWN Consulting Unavailable CHARMAINE CALLAHAN MD Consulting Unavailable CHARMAINE CALLAHAN MD Attending Unavailable CHARMAINE CALLAHAN MD Admitting Unavailable CHARMAINE CALLAHAN MD Primary Care Unavailable PROVIDER, UNKNOWN Consulting Unavailable PROVIDER, UNKNOWN Consulting Unavailable PROVIDER, UNKNOWN Consulting Unavailable CHARMAINE CALLAHAN MD Consulting Unavailable CHARMAINE CALLAHAN MD Attending Unavailable LATOUCHARMAINE Burt MD Admitting Unavailable LATOUCHARMAINE Burt MD Primary Care Unavailable PROVIDER, UNKNOWN Consulting Unavailable PROVIDER, UNKNOWN Consulting Unavailable PROVIDER, UNKNOWN Consulting Unavailable Allergies Allergy Classification Reported Allergen(s) Allergy Type Date of Onset Reaction(s) Facility (1 source) Erythromycin Drug Allergy [facility] Repository (1 source) metroNIDAZOLE Drug Allergy [facility] Problems Active Problems Problem Classification Problem Date Documented Da te Episodic/Chronic Anxiety disorders (1 source) Anxiety disorder, unspecified; Translations: [Anxiety disorder, unspecified] Onset: 11-26-2022 Chronic Chronic kidney disease (1 source) Chronic kidney disease; Translations: [Chronic kidney disease, stage 3a] Onset: 11-26-2022 Chronic obstructive pulmonary disease and bronchiectasis (1 source) Chronic obstructive pulmonary disease with (acute) exacerbation; Translations: [Chronic obstructive pulmonary disease with (acute) exacerbation] Onset: 11-26-2022 Chronic Congestive heart failure; nonhypertensive (1 source) Unspecified diastolic (congestive) heart failure; Translations: [Unspecified diastolic (congestive) heart failure] Onset: 11-26-2022 Chronic Disorders of lipid metabolism (1 source) Pure hypercholesterolemi a, unspecified; Translations: [Pure hypercholesterolemi a, unspecified] Onset: 05-26-2023 Chronic Essential hypertension (2 sources) Essential (primary) hypertension; Translations: [Essential (primary) hypertension] Onset: 03-14-2023 Chronic Hypertension with complications and secondary hypertension (2 sources) Hypertensive heart and chronic kidney disease with heart failure and stage 1 through stage 4 chronic kidney disease, or unspecified chronic kidney disease; Translations: [Hypertensive chronic kidney disease with stage 1 through stage 4 chronic kidney disease, or unspecified chronic kidney disease] Onset: 09-24-2022 Chronic Mood disorders (1 source) Mood disorders; Translations: [Depression, unspecified] Onset: 11-26-2022 Nutritional deficiencies (1 source) Vitamin D deficiency, unspecified; Translations: [Vitamin D deficiency, unspecified] Onset: 05-26-2023 Chronic Occlusion or stenosis of precerebral arteries (1 source) Occlusion and stenosis of unspecified carotid artery; Translations: [Occlusion and stenosis of unspecified carotid artery] Onset: 11-26-2022 Chronic Other diseases of bladder and urethra (1 source) Overactive bladder; Translations: [Overactive bladder] Onset: 11-26-2022 Chronic Other nutritional; endocrine; and metabolic disorders (1 source) Hypomagnesemia; Translations: [Hypomagnesemia] Onset: 05-26-2023 Chronic Other nutritional; endocrine; and metabolic disorders (1 source) Obesity, unspecified; Translations: [Obesity, unspecified] Onset: 11-26-2022 Chronic Other nutritional; endocrine; and metabolic disorders (1 source) Body mass index (BMI) 30.0-30.9, adult; Translations: [Body mass index [BMI]30.0-30.9, adult] Onset: 11-26-2022 Chronic Other upper respiratory disease (1 source) Other seasonal allergic rhinitis; Translations: [Other seasonal allergic rhinitis] Onset: 11-26-2022 Chronic Respiratory failure; insufficiency; arrest (adult) (1 source) Chronic respiratory failure with hypoxia; Translations: [Chronic respiratory failure with hypoxia] Onset: 11-26-2022 Chronic Thyroid disorders (4 sources) Hypothyroidism, unspecified; Translations: [Hypothyroidism, unspecified] Onset: 11-25-2022 Chronic Unclassified (1 source) Permanent atrial fibrillation; Translations: [Permanent atrial fibrillation] Onset: 11-26-2022 Past or Other Problems Problem Classification Problem Date Documented Da te Episodic/Chronic Cancer of breast (1 source) Personal history of malignant neoplasm of breast; Translations: [Personal history of malignant neoplasm of breast] Onset: 11-26-2022 Episodic Other aftercare (1 source) watermaster (current) use of anticoagulants; Translations: [long-term (current) use of anticoagulants] Onset: 11-26-2022 Episodic Other bone disease and musculoskeletal deformities (4 sources) Other specified disorders of bone density and structure, unspecified site; Translations: [Other specified disorders of bone density and structure, unspecified site] Onset: 09-24-2022 Episodic Other circulatory disease (1 source) Personal history of transient ischemic attack (TIA), and cerebral infarction without residual deficits; Translations: [Personal history of transient ischemic attack (TIA), and cerebral infarction without residual deficits] Onset: 11-26-2022 Episodic Other lower respiratory disease (2 sources) Shortness of breath; Translations: [Shortness of breath] Onset: 11-26-2022 Episodic Other screening for suspected conditions (not mental disorders or infectious disease) (1 source) Other specified abnormal findings of blood chemistry; Translations: [Other specified abnormal findings of blood chemistry] Onset: 11-26-2022 Episodic Residual codes; unclassified (1 source) Acquired absence of left breast and nipple; Translations: [Acquired absence of left breast and nipple] Onset: 11-26-2022 Episodic Screening and history of mental health and substance abuse codes (1 source) Personal history of nicotine dependence; Translations: [Personal history of nicotine dependence] Onset: 11-26-2022 Episodic Results Test Name Value Interpretation Reference Range Facil ity Encounters Encounter Date Encounter Type Care Provider Facility Start: 06-11-2023 End: 06-11-2023 ambulatory CHARMAINE CALLAHAN [facility] Start: 05-26-2023 ambulatory CHARMAINE CALLAHAN [facility] Start: 03-14-2023 End: 03-14-2023 ambulatory CHARMAINE CALLAHAN [facility] Start: 01-20-2023 End: 01-20-2023 ambulatory CHARMAINE CALLAHAN [facility] Start: 11-26-2022 End: 11-29-2022 Evaluation and management of inpatient ESTHER MARIANO [facility] Start: 11-25-2022 End: 11-25-2022 ambulatory CHARMAINE BENAVIDES [facility] Start: 09-24-2022 End: 09-24-2022 [facility] Procedures Date Procedure Procedure Detail Performing Clinician Start: 11-26-2022 Urinalysis CHARMAINE ROBLES Payers Date Payer Category Payer Medicare [id number] 1940 Unknown [id number] 2.16.8 [id number] 1940 Unknown [id number] 2.16.8 [id number] 1940 Unknown [id number] 2.16.8 [id number] 1940 Unknown [id number] 2.16.8 [id number] 1940 Unknown [id number] 2.16.84 [id number] 1940 Unknown [id number] 2.16.84 [id number] 1940 Unknown [id number] 2.16.84 [id number] History and physical note 12-03-2022 Note Date & Type Note Facility 12-03-2022 Note [facility] HISTORY & PHYSICAL NAME ACCOUNT SEX AGE ADMIT DISCHARGE PT MED. RECORD# NUMBER DATE DATE TYPE ALEXANDREA GAN [id number] F 81 11/26/22 1 I [id number] ROOM: [facility] DATE OF : 44 DICTATING PHYSICIAN: Charmaine Callahan TIME PATIENT SEEN: 11 a.m. CHIEF COMPLAINT: Shortness of breath and hypoxia. HISTORY OF PRESENT ILLNESS: The patient is a pleasant 81-year-old lady with a past medical history significant for severe COPD who was in her usual state of health until about 2 weeks ago when she called the office complaining of not feeling well for several days and she noticed that she was more short of breath. She does have oxygen at home that she uses at night, but she noticed that she has been using it more than usual. She was treated with a Z-Ronald after she reported that she has mild cough with a small amount of milky sputum. She seemed to have improved at that time, except she had a vaginal yeast infection that was treated with Diflucan. After that, she noticed that her cough has improved, but she was becoming more short of breath, especially with minimal activity. She noticed intermittent increase in her wheezing. She presented to the office on November 26, 2022, and she was noted to be significantly hypoxic with O2 saturation of 85%. When I had her take a couple of deep breaths that oxygen saturation improved to 89 to 90%, but then it dipped down to the low 80s very quickly. The patient was sent to the emergency room for evaluation, and she was hypoxic in the emergency room. She was admitted with a working diagnosis of COPD exacerbation. She was started on prednisone in addition to DuoNeb. When I saw her this morning, she was feeling better; although, she continued to have increasing shortness of breath with minimal activity. She denies any chest pain. PAST MEDICAL HISTORY: (1) COPD. Last pulmonary function test was done on September 21, 2014 and it showed moderately severe obstructive abnormality, GOLD Class II associated with significant reactive airway disease component with decreased diffusion capacity. (2) Anxiety. (3) Carotid artery stenosis status post carotid endarterectomy on the right side. (4) Mild obesity with a body mass index of 30.49 kg/m2. (5) Depression. (6) Environmental allergies. (7) History of breast cancer status post left mastectomy. (8) History of TIA. (9) Hypertension. (10) Hypercholesterolemia. (11) Hypomagnesemia. (12) Hypothyroidism. (13) Osteopenia. (14) Overactive bladder. (15) Paroxysmal atrial fibrillation. (16) Status post carotid endarterectomy on the right. (17) Stage IIIA chronic kidney disease. (18) Previous history for syncopal episodes. (19) Vitamin D deficiency. PAST SURGICAL HISTORY: (1) Appendectomy. (2) Benign breast biopsy bilaterally. (3) Previous D&C. (4) Right endarterectomy. (5) Left mastectomy for breast cancer. Page 1 of 4 ALEXANDREA GAN I History & Physical ALEXANDREA GAN I :1940 MEDICATIONS: Current medications at home: Pravastatin 10 mg daily, Levothyroxine 75 mg daily, Claritin 10 mg daily, magnesium oxide 400 mg b.i.d., Procardia XL 60 mg daily, metoprolol succinate 50 mg daily, Eliquis 5 mg b.i.d., Sertraline 50 mg daily, triamterene/hydrochlorothiazide 37.5/25 mg daily, Drisdol 50,000 units weekly, aspirin enteric-coated 81 mg daily, fluticasone 2 sprays as needed, acetaminophen p.r.n., calcium with vitamin D daily, multivitamins daily. ALLERGIES: The patient is intolerant to erythromycin, and that gives her nausea. She is allergic to metronidazole and that gives her rash and swelling. FAMILY HISTORY: Father and 3 siblings from myocardial infarction. One sibling from emphysema. Mother from pneumonia. One sibling from kidney disease and another sibling from ruptured aneurysm. SOCIAL HISTORY: The patient is a . She has 2 children. She used to smoke, 1-1/2 packs per day for more than 30 years. She quit smoking in 2006. She does not drink any alcohol. REVIEW OF SYSTEMS: The patient denies any dizziness, lightheadedness, or headaches. She complains of increasing shortness of breath, increasing wheezing over the last few days. She denies any chest pain. She denies any GI or symptoms. No lower extremity edema. The rest of the review of systems were discussed with the patient, and they were negative. PHYSICAL EXAMINATION GENERAL APPEARANCE: The patient was lying down in bed comfortably in no acute distress, well-developed, well-nourished. VITAL SIGNS: Blood pressure 165/71, heart rate 75, respiratory rate 18, temperature 98.7, oxygen saturation 96% on 2 liters nasal cannula. Admission O2 saturation was 83% on room air. SKIN: Warm and dry. HEENT: Unremarkable. NECK: Neck is supple. No nodes. No masses. No JVD. No carotid bruit. No thyroid enlargement. LUNGS: Symmetrical, equal lung expansion, diminished breath sounds bilaterally, renae (more content not included)... [facility] Clinical Note 12-03-2022 Note Date & Type Note Facility 12-03-2022 Note [facility] PROGRESS NOTE NAME ACCOUNT SEX AGE ADMIT DISCHARGE PT MED. RECORD# NUMBER DATE DATE TYPE MALIK, [id number] F 81 11/26/22 1 ALEXANDREA I [id number] ROOM: [facility] DATE OF : 1940 DICTATING PHYSICIAN: Charmaine Callahan DATE OF SERVICE: November 28, 2022 TIME PATIENT SEEN: 7:45 a.m. SUBJECTIVE: The patient is feeling better. She has some intermittent cough. She continues to require oxygen support. She denies any chest pain. OBJECTIVE: GENERAL APPEARANCE: No acute distress, lying down in bed comfortably. VITALS SIGNS: Blood pressure 144/95, heart rate 68, respiratory rate 18, temperature 98.1, oxygen saturation 98% on 2 liters nasal cannula. SKIN: Warm and dry. NECK: Neck is supple. No nodes, slight JVD present.. LUNGS: Symmetrical, equal lung expansion, diminished breath sounds bilaterally. I could not hear any wheezing or any crackles. HEART: Irregularly irregular. EXTREMITIES: No edema. NEUROLOGIC: The patient was alert and oriented x3. DIAGNOSTIC DATA: Laboratory data: WBC is 11.8, hemoglobin 10.8, hematocrit 32.6, and platelet count 275,000. Sodium is 131, potassium 3.8, BUN 34, and creatinine 1.23. Glucose is 118. Albumin is 3.4. Total bilirubin is 0.4. Magnesium is 2.1. BNP is 3223. ASSESSMENT/PLAN: 1. Chronic obstructive pulmonary disease exacerbation, clinically improving. She continues to require oxygen support. We will continue current treatment. Continue prednisone 40 mg daily, and continue DuoNeb in addition to Symbicort. 2. Hypoxia likely secondary to chronic obstructive pulmonary disease exacerbations. Continue current oxygen support. 3. Elevated BNP, which has gotten worse since admission. We will obtain an echocardiogram, and I will ask for a cardiology evaluation to rule out cardiac source of the patient's BNP. 4. Paroxysmal atrial fibrillation. Continue anticoagulation therapy with Eliquis. It is rate controlled at this time. Continue beta blockers. 5. Hypertension with mild elevation of the blood pressure. Although, it has improved significantly since admission, we will continue current treatment. 6. Dr. Mariano will cover for me starting today until Friday morning at 7 a.m. 7. Above was discussed with the patient in details. All questions were answered, and she expressed understanding of the plan of care. I also discussed the case with nursing staff and with Dr. Neville and Dr. Mariano. Page 1 of 2 ALEXANDREA GAN I Progress Note ALEXANDREA GAN I : 1940 Dictated By: Charmaine Callahan MD 11/28/22 19:56 JOB #: [id number] Transcribed By: [email or web address] 11/29/22 07:57 Electronically signed by: Charmaine Callahan M.D. 12/03/22 09:15 Page 2 of 2 ALEXANDREA GAN I Progress Note [facility] Clinical Note 12-02-2022 Note Date & Type Note Facility 12-02-2022 Note . MICRO - Microbiology PROCEDURE: Blood Culture (bacterial) [*1] SOURCE: Blood BODY SITE: COLLECTED DATE/TIME: 11/26/2022 17:36 EDT RECEIVED DATE/TIME: 11/27/2022 16:47 EDT START DATE/TIME: 11/27/2022 16:47 EDT FREE TEXT SOURCE: FINAL REPORTS Final Report [] Verified Date/Time/Personnel: 12/02/2022 16:59 EDT Blood Culture: No Growth at 5 days. PRELIMINARY REPORTS Preliminary Report [] Verified Date/Time/Personnel: 11/27/2022 17:59 EDT Culture has been received in lab and is no growth to date. Routine cultures are held for 5 days. Performing Locations *1: This test was performed at: [address], [facility] , [facility] ([place]) Clinical Note 12-01-2022 Note Date & Type Note Facility 12-01-2022 Note . MICRO - Microbiology PROCEDURE: Blood Culture (bacterial) [O1 *1] SOURCE: Blood BODY SITE: COLLECTED DATE/TIME: 11/26/2022 13:30 EDT RECEIVED DATE/TIME: 11/26/2022 18:25 EDT START DATE/TIME: 11/26/2022 18:26 EDT FREE TEXT SOURCE: FINAL REPORTS Final Report [] Verified Date/Time/Personnel: 12/01/2022 18:59 EDT Blood Culture: No Growth at 5 days. PRELIMINARY REPORTS Preliminary Report [] Verified Date/Time/Personnel: 11/26/2022 18:59 EDT Culture has been received in lab and is no growth to date. Routine cultures are held for 5 days. Order Comments O1: Blood Culture (bacterial) fax [phone] Performing Locations *1: This test was performed at: [address], [address] [place] [address] ([place]) Summary Purpose Family History No Family History Records FoundNo Family History Records FoundNo Family History Records Found Advance Directives No Advanced Directives Records FoundNo Advanced Directives Records FoundNo Advanced Directives Records Found Additional Source Comments INFORMATION SOURCE (unrecogn ized section and content) DATE CREATED AUTHOR AUTHOR'S ORGANIZ ATION 12/22/2022 [facility] ([place] DATE CREATED AUTHOR AUTHOR'S ORGANIZ ATION 06/13/2023 [facility] FOR RECORDS PERTAINING TO PATIENTS WHO ARE OR HAVE BEEN ENROLLED IN A CHEMICAL DEPENDENCY/SUBSTANCEABUSE PROGRAM, SOME INFORMATION MAY BE OMITTED. This clinical summary was aggregated from multiple sources. Caution should be exercised in using it in the provision of clinical care. This summary normalizes information from multiple sources, and as a consequence, information in this document may materially change the coding, format and clinical context of patient data. In addition, data may be omitted in some cases. CLINICAL DECISIONS SHOULD BE BASED ON THE PRIMARY CLINICAL RECORDS. [facility] [employer] [facility]. provides no warranty or guarantee of the accuracy or completeness of information in this document.
== END | disposition home or self-care (01) ==
LOC: MRI 15:11
PROVIDERS: PCP Internal Medicine; Referring Provider Ophthalmology; Visit Provider Ophthalmology
DX: H55.00 Unspecified nystagmus (principal)
CPT/HCPCS: 70551

== ENCOUNTER 2024-05-02 09:53 | Observation (INO) | payer MEDICARE, SELFPAY ==
[2024-05-02] VITALS (14 sets, daily range): BP systolic 113–157; BP diastolic 50–94; PULSE 79–97; RESP 16–26; TEMP 36.2–36.8; O2SAT 74–98; BMI 33.8; BMI 32.1
--- NOTE | 2024-05-02 11:01 | EDS_ITS ---
HPI History of Present Illness Chief Complaint: Shortness of Breath Narrative Narrative: Chief complaint and HPI: Shortness of breath. 83-year-old female with history of SHAD, atrial fibrillation on Eliquis, HTN, CHF, COPD on baseline 2 L nasal cannula, presents for evaluation of shortness of breath and bilateral lower extremity swelling. Patient states she follows with open cardiology but does not know the physician's name. She states that she has been having increased bilateral lower extremity swelling for the past several weeks. Daughter in the room states that the swelling started a couple weeks ago. She states that they saw her PCP as there was some redness on her legs. At that time she was given steroids and the redness improved. The swelling has not improved. Patient endorses orthopnea and worsening exertional dyspnea. She has gained multiple pounds although does not daily weigh herself. She is edematous in her abdomen but denies any abdominal pain. She denies any fever, chills, URI symptoms, chest pain, abdominal pain, nausea, vomiting. Review of systems: See HPI Medications: As listed on the chart Allergies: As listed on the chart PFSH: Per chart Vital signs: As listed on the chart. Reviewed. Physical exam: Gen: A&O x3, NAD Head: Normocephalic, atraumatic Eyes: No sclera icterus, conjunctiva clear ENT: Moist mucous membranes Neck: Trachea midline CV: Regular rate, irregular rhythm, no murmurs, + 3 pitting peripheral edema of the bilateral lower extremities Resp: Diminished breath sounds bilaterally, on baseline 2 L nasal cannula GI: Abd soft, mildly distended and taut from anasarca, non-tender, no r/r/g Musc: Moves all extremities, no deformity Skin: Warm, dry Neuro: Alert, oriented, grossly intact, sensation intact Psych: Cooperative, appropriate mood and affect 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 COPD (chronic obstructive pulmonary disease) Hypertension Atrial fibrillation Heart disease TIA (transient ischemic attack) Arthritis Thyroid disease History of breast cancer Carotid stenosis Home Medications ?Medication ?Instructions ?Recorded ?Last Taken ?Type calcium 500 mg (as 1 tab PO BIDCM supplement 08/12/14 05/01/24 History carbonate)-vitamin D3 5 mcg (200 unit) tablet lorazepam 0.5 mg tablet 0.5 mg PO BID PRN Anxiety 08/12/14 08/15/14 05:00 History multivitamin with folic acid 400 1 tab PO DAILY supplement 08/12/14 05/01/24 History mcg tablet aspirin 81 mg tablet,delayed 81 mg PO DAILY heart health 12/28/19 05/01/24 History release ergocalciferol (vitamin D2) 1,250 1,250 mcg PO MO supplement 12/28/19 04/26/24 History mcg (50,000 unit) capsule (Drisdol) nifedipine 60 mg tablet,extended 60 mg PO DAILY heart 12/28/19 05/01/24 History release 24 hr (Procardia XL) triamterene 37.5 1 cap PO DAILY water pill 12/28/19 05/01/24 History mg-hydrochlorothiazide 25 mg capsule acetaminophen 500 mg tablet 500 mg PO Q6H PRN PRN Pain Or Fever 12/31/19 05/01/24 History loperamide 2 mg capsule 2 mg PO Q4H PRN Diarrhea 12/31/19 Unknown History apixaban 5 mg tablet 5 mg PO BID 01/29/21 05/01/24 History magnesium oxide 400 mg (241.3 mg 400 mg PO BID 01/29/21 05/01/24 History magnesium) tablet albuterol sulfate 90 mcg/actuation 1 inh inhalation Q4H PRN shortness 05/29/23 Unknown Rx aerosol inhaler of breath or wheezing #8.5 grams Nebulizer machine #1 ea 09/01/23 Unknown Rx ipratropium 0.5 mg-albuterol 3 mg 3 ml inhalation Q6-8H SOB &/OR 09/01/23 05/01/24 Rx (2.5 mg base)/3 mL nebulization WHEEZING #180 mL soln pravastatin 10 mg tablet 10 mg PO DAILY 09/01/23 05/01/24 History sertraline 50 mg tablet 50 mg PO DAILY 09/01/23 05/01/24 History fluticasone fur. 100 mcg-umeclid 1 inh inhalation DAILY 05/02/24 Unknown History 62.5 mcg-vilant 25 mcg inhalat.powder (Trelegy Ellipta) levothyroxine 88 mcg tablet 88 mcg PO DAILY 05/02/24 05/02/24 History metoprolol succinate 50 mg 50 mg PO DAILY 05/02/24 05/01/24 History tablet,extended release 24 hr Allergy/AdvReac Type Severity Reaction Status Date / Time erythromycin base AdvReac Nausea/Vom/ Verified 05/02/24 09:53 Diarrhea metronidazole AdvReac Swelling Verified 05/02/24 09:53 Family History (Reviewed 12/23/23 @ 08:29 by Virginia De La Fuente [employer], [employer]) Sister Arthritis Mother Diabetes CVA (cerebral vascular accident) Father Heart disease Diabetes Brother Diabetes Surgical History (Reviewed 12/23/23 @ 08:29 by Virginia De La Fuente [employer], [employer]) History of right-sided carotid endarterectomy (~12/2019) History of appendectomy History of left total mastectomy Social History (Reviewed 12/23/23 @ 08:29 by Virginia De La Fuente [employer], [employer]) Smoking Status: Former smoker Tobacco: How many years used: 40 alcohol intake: never substance use type: does not use EXAM Physical Exam Const Vital Signs: 05/02/24 09:53 05/02/24 09:53 05/02/24 10:01 Temperature 98 F 98 F Temperature Source Oral Oral Pulse Rate 95 92 Respiratory Rate 26 H 17 Respiratory Effort Short of Breath Labored Respiratory Depth Shallow Respiratory Pattern Tachypnea Blood Pressure 150/76 H 150/76 H Blood Pressure Mean 100 100 Pulse Ox 74 97 Oxygen Delivery Method Nasal Cannula Nasal Cannula Nasal Cannula Oxygen Flow Rate (L/min) 2 10 2 05/02/24 10:52 05/02/24 10:53 05/02/24 11:00 Temperature Temperature Source Pulse Rate 80 81 Respiratory Rate 20 H 16 Respiratory Effort Respiratory Depth Respiratory Pattern Blood Pressure 153/83 H 148/83 H Blood Pressure Mean 106 104 Pulse Ox 97 97 95 Oxygen Delivery Method Nasal Cannula Nasal Cannula Nasal Cannula Oxygen Flow Rate (L/min) 2 2 2 05/02/24 11:01 05/02/24 11:29 05/02/24 12:00 Temperature 98 F 98 F Temperature Source Oral Oral Pulse Rate 81 97 Respiratory Rate 16 18 Respiratory Effort Respiratory Depth Respiratory Pattern Blood Pressure 148/83 H 145/94 H Blood Pressure Mean 104 111 Pulse Ox 95 95 97 Oxygen Delivery Method Nasal Cannula Nasal Cannula Nasal Cannula Oxygen Flow Rate (L/min) 2 3 2 MDM MDM MDM Narrative Medical decision making narrative: 83-year-old female with multiple comorbidities presents for evaluation of shortness of breath and fluid retention. Differential diagnosis includes but is not limited to CHF exacerbation, COPD exacerbation, electrolyte abnormality, less likely ACS. Based on patient's symptoms and physical exam I suspect CHF exacerbation. Cardiac workup ordered. On chart review, patient saw Dr. Castillo in the past. I do not have any echocardiogram or cardiac catheterization to review. CBC without leukocytosis. Patient has anemia with hemoglobin of 11.5. BMP with hyponatremia at 123 likely secondary to her hydrochlorothiazide. Will not be giving fluids given that patient is fluid overloaded on physical exam. Patient has baseline renal insufficiency at 1.07. Troponin unremarkable. BNP elevated at 515. Patient given 40 of Lasix. Patient will warrant admission for her COPD exacerbation. Patient was discussed with the hospitalist physician who accepted admission. EKG: Interpreted by me/EM physician: EKG shows atrial fibrillation without any acute ischemic changes. Heart rate 86. Diagnostic: Interpreted by me/EM physician: Chest x-ray without pneumonia, large effusion, pneumothorax Impression: 1. CHF exacerbation 2. Hyponatremia 3. Anemia 4. Renal insufficiency Lab Data Labs: Laboratory Results - last 24 hr 05/02/24 10:00 WBC 7.9 RBC 4.36 Hgb 11.5 L Hct 35.3 L MCV 81.0 MCH 26.4 L MCHC 32.6 RDW Std Deviation 50.8 H RDW Coeff of Valdemar 17.2 H Plt Count 206 MPV 11.3 Immature Gran % (Auto) 0.400 Neut % (Auto) 76.7 H Lymph % (Auto) 12.1 L [place] % (Auto) 8.5 Eos % (Auto) 1.5 Baso % (Auto) 0.8 Absolute Neuts (auto) 6.1 Absolute Lymphs (auto) 0.96 Nucleated RBC % 0 PT 20.3 H INR 1.7 APTT 34.8 Sodium 123 L Potassium 3.7 Chloride 89 L Carbon Dioxide 26.0 Anion Gap 8 BUN 14 Creatinine 1.07 H Estim Creat Clear Calc 41.41 Est GFR (MDRD) Af Amer 63 Est GFR (MDRD) Non-Af 52 L BUN/Creatinine Ratio 13.1 Glucose 97 Calcium 9.2 Troponin I High Sens 8 B-Natriuretic Peptide 515.2 H TSH 10.200 H Free T4 1.42 Free T3 pg/dL 1.5 L Radiography Diagnostic Testing: Clinical Impression(s) from Imaging Studies Chest X-Ray 05/02/24 11:03 IMPRESSION: No radiographic evidence of acute cardiopulmonary disease. Electronically Signed: Reynold Marr MD at 11:34 EDT , Discharge Plan Disposition Disposition: Acute Care Hospital [facility] Discharge Date/Time: 05/02/24 12:24
--- NOTE | 2024-05-02 11:03 | RAD_ITS ---
INDICATION: Shortness of breath EXAMINATION/TECHNIQUE: X-RAY - XR Chest 2 Views COMPARISON: Prior study dated: 08/12/2014 FINDINGS: LINES/DEVICES: None. LUNGS: No consolidation, edema or effusion. No pneumothorax. MEDIASTINUM AND CARDIOVASCULAR STRUCTURES: Cardiac silhouette not enlarged. Central airways and mediastinal contour are unremarkable. Surgical clips in the left axilla. BONES AND SOFT TISSUES: Unremarkable. RAD/Chest PA and Lateral IMPRESSION: No radiographic evidence of acute cardiopulmonary disease. Electronically Signed: Reynlod Marr MD at 11:34 EDT ,
[2024-05-02 11:12] LABS: Absolute Lymphocyte Count 0.96 X10^3/uL (0.83-4.51); Absolute Neutrophil Count 6.1 X10^3/uL (2.0-7.7); Basophil# 0.06 X10^3/uL; Basophil% 0.8 % (0-1); Eosinophil# 0.12 X10^3/uL; Eosinophils% 1.5 % (0-5); Hematocrit 35.3 % (37-47); Hemoglobin 11.5 g/dL (12.0-15.0); Lymphocyte # 0.96 X10^3/ul (0.83-4.51); Lymphocyte % 12.1 % (19-41); Mean Corp Hgb Conc 32.6 g/dL (32-36); Mean Corpuscular Hgb 26.4 pg (27.0-32.0); Mean Platelet Vol. 11.3 fl (6.2-12.0); Monocyte# 0.67 X10^3/uL; Monocyte% 8.5 % (0-10); NRBC Flagged by Analyzer 0 % (0-5); Neutrophil # 6.08 X10^3/uL (2.7-7.7); Neutrophil % 76.7 % (47-70); Platelet Count 206 K/mm3 (150-450); RBC Distribution Width CV 17.2 % (11.6-14.6); RBC Distribution Width SD 50.8 fl (35.1-43.9); Red Blood Count 4.36 M/mm3 (4.2-5.4); White Blood Count 7.9 K/mm3 (4.4-11.0)
[2024-05-02 11:17] LABS: International Normalized Ratio 1.7; Prothrombin Time (Protime)PT. 20.3 SECONDS (11.7-14.9)
[2024-05-02 11:18] LABS: Anion Gap 8 (5-15); BUN 14 mg/dL (7-18); BUN/Creat Ratio 13.1 RATIO (10-20); Calcium,Total 9.2 mg/dL (8.5-10.1); Chloride 89 mmol/L (98-107); Creatinine, Serum 1.07 mg/dL (0.55-1.02); EST Glomerular Filtration Rate 52 mL/min (>60); Est Glom Filt Rate - Afr Amer 63 mL/min (>60); Estimated Creatinine Clearance 41.41 ml/min; Glucose 97 mg/dL (74-106); Partial Thromboplast Time 34.8 Seconds (24.1-36.2); Potassium 3.7 mmol/L (3.5-5.1); Sodium Level 123 mmol/L (136-145); Troponin-I HS 8 pg/mL (3.0-54.0)
[2024-05-02 11:33] LABS: BNP,B-Type NATRIURETIC PEPTIDE 515.2 pg/mL (0-100)
[2024-05-02] MEDS: Furosemide 40 MG/4 ML Vial IV ×2 (11:59→18:06)
--- NOTE | 2024-05-02 12:48 | ECHOCS_ITS ---
Reason For Study: CHF Procedure This was a 2D Doppler, Color Flow transthoracic echocardiogram. Contrast injection was performed. The study was technically difficult. Exam performed portable in patient room. Left Ventricle Normal size and thickness. The left ventricular ejection fraction is 60 %. Unable to assess diastolic dysfunction due to arrhythmia. Right Ventricle Moderately dilated right ventricular cavity with moderate right ventricular systolic dysfunction. Atria There is moderate biatrial dilatation. Mitral Valve Moderate mitral annular calcification. Trivial mitral valve insufficiency. Tricuspid Valve Mild to moderate (1-2+) tricuspid valve insufficiency. Right ventricular systolic pressure estimated to be 56 mmHg. Aortic Valve Aortic sclerosis, no stenosis. Pulmonic Valve The pulmonic valve is not well visualized. Great Vessels Normal sized aortic root. Pericardium/Pleural No pericardial effusion. Medication Diluted definity 1ml given slow IV push to enhance endocardial definition. MMode/2D Measurements & Calculations LVIDd: 3.7 cm IVSd: 0.60 cm LVOT diam: 1.7 cm LVIDs: 2.7 cm LVPWd: 0.82 cm RVDd: 3.4 cm FS: 28.1 % LVOT area: 2.2 cm2 Ao root diam: 2.7 cm LAV(MOD-bp): 50.5 ml LVAd ap4: 26.5 cm2 LA dimension: 4.0 cm LAV(MOD-bp) Indexed: 27.7 ml/m2 LVLd ap4: 7.0 cm LAV(MOD-sp2): 57.1 ml EDV(MOD-sp4): 84.6 ml LAV(MOD-sp4): 43.1 ml EDV(sp4-el): 85.3 ml LVAs ap4: 15.9 cm2 LVLs ap4: 5.8 cm ESV(MOD-sp4): 35.0 ml ESV(sp4-el): 36.9 ml EF(MOD-sp4): 58.7 % EF(sp4-el): 56.8 % SV(MOD-sp4): 49.7 ml SV(sp4-el): 48.4 ml LA A4 area: 17.1 cm2 RA A4 area: 21.0 cm2 TAPSE: 1.7 cm Doppler Measurements & Calculations MV E max emory: 165.2 cm/sec MV V2 max: 163.6 cm/sec Ao V2 max: 131.7 cm/sec MV max P.8 mmHg Ao max P.0 mmHg MV V2 mean: 65.4 cm/sec Ao V2 mean: 90.4 cm/sec MV mean P.6 mmHg Ao mean P.7 mmHg MV V2 VTI: 34.4 cm Ao V2 VTI: 25.4 cm MVA(VTI): 1.2 cm2 AV (velocity ratio): 0.76 CHERYL(I,D): 1.6 cm2 CHERYL(V,D): 1.6 cm2 LV V1 max: 95.8 cm/sec SV(LVOT): 41.9 ml PA V2 max: 113.4 cm/sec LV V1 max P.7 mmHg LV V1 mean P.0 mmHg LV V1 mean: 66.2 cm/sec LV V1 VTI: 19.3 cm TR max emory: 346.4 cm/sec TR max P.0 mmHg ECHO/Echo Complete W/ Contrast Interpretation Summary The study was technically difficult. The left ventricular ejection fraction is 60 %. Unable to assess diastolic dysfunction due to arrhythmia. Moderately dilated right ventricular cavity with moderate right ventricular sys tolic dysfunction. There is moderate biatrial dilatation. Moderate mitral annular calcification. Mild to moderate (1-2+) tricuspid valve insufficiency. Right ventricular systolic pressure estimated to be 56 mmHg. Aortic sclerosis, no stenosis. Ordering Physician: Isiah Hair Performed By: Alli Moore and Student
--- NOTE | 2024-05-02 14:48 | HP.PCM.HOS_ITS ---
HPI - General General Date of Admission: 05/02/24 HPI Narrative ALEXANDREA GAN, is a 83 F who presents to the hospital with increasing edema. She has some increased shortness of breath however she is on baseline 2 L of oxygen and is currently requiring 2 to 3 L of oxygen. At the time my evaluation had been several hours after she had received her Lasix and she says that she is feeling much better. She states that her primary care doctor had told her to be drinking 8 cups of water every day however given her heart failure this will likely need to be 6 cups of water on discharge. She had a chest x-ray in the ED was fairly unremarkable, she did have a slightly increased BNP to over 500. Is also noted she has little bit of hyponatremia however she is on hydrochlorothiazide and is also volume overloaded so this will improve with Lasix and will hold her hydrochlorothiazide. 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 COPD (chronic obstructive pulmonary disease) Hypertension Atrial fibrillation Heart disease TIA (transient ischemic attack) Arthritis Thyroid disease History of breast cancer Carotid stenosis Home Medications ?Medication ?Instructions ?Recorded ?Last Taken ?Type calcium 500 mg (as 1 tab PO BIDCM supplement 08/12/14 05/01/24 History carbonate)-vitamin D3 5 mcg (200 unit) tablet lorazepam 0.5 mg tablet 0.5 mg PO BID PRN Anxiety 08/12/14 08/15/14 05:00 History multivitamin with folic acid 400 1 tab PO DAILY supplement 08/12/14 05/01/24 History mcg tablet aspirin 81 mg tablet,delayed 81 mg PO DAILY heart health 12/28/19 05/01/24 History release ergocalciferol (vitamin D2) 1,250 1,250 mcg PO MO supplement 12/28/19 04/26/24 History mcg (50,000 unit) capsule (Drisdol) nifedipine 60 mg tablet,extended 60 mg PO DAILY heart 12/28/19 05/01/24 History release 24 hr (Procardia XL) triamterene 37.5 1 cap PO DAILY water pill 12/28/19 05/01/24 History mg-hydrochlorothiazide 25 mg capsule acetaminophen 500 mg tablet 500 mg PO Q6H PRN PRN Pain Or Fever 12/31/19 05/01/24 History loperamide 2 mg capsule 2 mg PO Q4H PRN Diarrhea 12/31/19 Unknown History apixaban 5 mg tablet 5 mg PO BID 01/29/21 05/01/24 History magnesium oxide 400 mg (241.3 mg 400 mg PO BID 01/29/21 05/01/24 History magnesium) tablet albuterol sulfate 90 mcg/actuation 1 inh inhalation Q4H PRN shortness 05/29/23 Unknown Rx aerosol inhaler of breath or wheezing #8.5 grams Nebulizer machine #1 ea 09/01/23 Unknown Rx ipratropium 0.5 mg-albuterol 3 mg 3 ml inhalation Q6-8H SOB &/OR 09/01/23 05/01/24 Rx (2.5 mg base)/3 mL nebulization WHEEZING #180 mL soln pravastatin 10 mg tablet 10 mg PO DAILY 09/01/23 05/01/24 History sertraline 50 mg tablet 50 mg PO DAILY 09/01/23 05/01/24 History fluticasone fur. 100 mcg-umeclid 1 inh inhalation DAILY 05/02/24 Unknown History 62.5 mcg-vilant 25 mcg inhalat.powder (Trelegy Ellipta) levothyroxine 88 mcg tablet 88 mcg PO DAILY 05/02/24 05/02/24 History metoprolol succinate 50 mg 50 mg PO DAILY 05/02/24 05/01/24 History tablet,extended release 24 hr Allergy/AdvReac Type Severity Reaction Status Date / Time erythromycin base AdvReac Nausea/Vom/ Verified 05/02/24 09:53 Diarrhea metronidazole AdvReac Swelling Verified 05/02/24 09:53 Family History (Reviewed 12/23/23 @ 08:29 by Virginia De La Fuente [employer], [employer]) Sister Arthritis Mother Diabetes CVA (cerebral vascular accident) Father Heart disease Diabetes Brother Diabetes Surgical History History of right-sided carotid endarterectomy (~12/2019) History of appendectomy History of left total mastectomy Social History Smoking Status: Former smoker Tobacco: How many years used: 40 alcohol intake: never substance use type: does not use ROS Constitutional Constitutional: Denies chills, fatigue, fever(s) or malaise Eyes Eyes: Denies blurry vision ENT HEENT: Denies headache(s) or nasal discharge Cardiovascular Cardiovascular: Reports edema; Denies chest pain, dyspnea on exertion or syncope Respiratory/Chest Respiratory/Chest: Reports shortness of breath at rest; Denies cough or shortness of breath with exertion Gastrointestinal Gastrointestinal: Denies constipation, diarrhea, nausea or vomiting Genitourinary Genitourinary: Denies dysuria Neurologic Neurologic: Denies focal weakness, numbness or tremor(s) Psychiatric Psychiatric: Denies anxiety or depression Vital Signs Vital Signs Vital Signs: 05/02/24 09:53 05/02/24 09:53 05/02/24 10:01 Temperature 98 F 98 F Temperature Source Oral Oral Pulse Rate 95 92 Respiratory Rate 26 H 17 Respiratory Effort Short of Breath Labored Respiratory Depth Shallow Respiratory Pattern Tachypnea Blood Pressure 150/76 H 150/76 H Blood Pressure Mean 100 100 Blood Pressure Source Blood Pressure Position Blood Pressure Location Pulse Ox 74 97 Oxygen Delivery Method Nasal Cannula Nasal Cannula Nasal Cannula Oxygen Flow Rate (L/min) 2 10 2 05/02/24 10:52 05/02/24 10:53 05/02/24 11:00 Temperature Temperature Source Pulse Rate 80 81 Respiratory Rate 20 H 16 Respiratory Effort Respiratory Depth Respiratory Pattern Blood Pressure 153/83 H 148/83 H Blood Pressure Mean 106 104 Blood Pressure Source Blood Pressure Position Blood Pressure Location Pulse Ox 97 97 95 Oxygen Delivery Method Nasal Cannula Nasal Cannula Nasal Cannula Oxygen Flow Rate (L/min) 2 2 2 05/02/24 11:01 05/02/24 11:29 05/02/24 12:00 Temperature 98 F 98 F Temperature Source Oral Oral Pulse Rate 81 97 Respiratory Rate 16 18 Respiratory Effort Respiratory Depth Respiratory Pattern Blood Pressure 148/83 H 145/94 H Blood Pressure Mean 104 111 Blood Pressure Source Blood Pressure Position Blood Pressure Location Pulse Ox 95 95 97 Oxygen Delivery Method Nasal Cannula Nasal Cannula Nasal Cannula Oxygen Flow Rate (L/min) 2 3 2 05/02/24 12:18 05/02/24 12:40 Temperature 98 F 97.1 F L Temperature Source Temporal Pulse Rate 97 87 Respiratory Rate 18 18 Respiratory Effort Respiratory Depth Respiratory Pattern Blood Pressure 145/94 H 157/89 H Blood Pressure Mean 111 111 Blood Pressure Source Monitor Blood Pressure Position Semi-Fowlers Blood Pressure Location Right Arm Pulse Ox 97 95 Oxygen Delivery Method Nasal Cannula Oxygen Flow Rate (L/min) 3 Weight Weight: 178 lb 5.663 oz Body Mass Index (BMI) 32.1 Physical Exam Narrative General: Alert, Oriented x3, Cooperative, No apparent distress HEENT: Atraumatic, PERRLA, EOMI, Normocephalic Oral: Moist Mucosa Neck: Supple, No JVD Lungs:, Normal air movement, No rhonchi, No wheeze, No rales Cardiovascular: Regular rate, Regular Rhythm, Normal S1, Normal S2, No murmurs Abdomen: Soft, Non Tender, Non-Distended, No Hepato-splenomegaly Extremities: Edema, Capillary Refill Less than 3 Seconds Skin: No rashes, No breakdown Musculoskeletal: No Tenderness to Palpation of Joints or Extremities Neurological: No focal neurological deficits, Motor Exam 5/5 strength throughout, Sensory exam intact to light touch and pain Psych/Mental Status: Normal Affect, Appropriate Results Lab / Micro Data 05/02/24 10:00 05/02/24 10:00 Labs: Laboratory Results - last 24 hr 05/02/24 10:00: WBC 7.9, RBC 4.36, Hgb 11.5 L, Hct 35.3 L, MCV 81.0, MCH 26.4 L, MCHC 32.6, RDW Std Deviation 50.8 H, RDW Coeff of Valdemar 17.2 H, Plt Count 206, MPV 11.3, Immature Gran % (Auto) 0.400, Neut % (Auto) 76.7 H, Lymph % (Auto) 12.1 L, [place] % (Auto) 8.5, Eos % (Auto) 1.5, Baso % (Auto) 0.8, Absolute Neuts (auto) 6.1, Absolute Lymphs (auto) 0.96, Nucleated RBC % 0, PT 20.3 H, INR 1.7, APTT 34.8, Sodium 123 L, Potassium 3.7, Chloride 89 L, Carbon Dioxide 26.0, Anion Gap 8, BUN 14, Creatinine 1.07 H, Estim Creat Clear Calc 41.41, Est GFR (MDRD) Af Amer 63, Est GFR (MDRD) Non-Af 52 L, BUN/Creatinine Ratio 13.1, Glucose 97, Calcium 9.2, Troponin I High Sens 8, B-Natriuretic Peptide 515.2 H, TSH 10.200 H Imaging Radiology Impression Chest X-Ray 05/02/24 11:03 IMPRESSION: No radiographic evidence of acute cardiopulmonary disease. Electronically Signed: Reynold Marr MD at 11:34 EDT , Assessment & Plan Assessment/Plan (1) CHF exacerbation: PLAN: Plan 1. CHF exacerbation unknown type/A-fib/essential HTN/HLD ?Continue with IV Lasix twice daily ? Continue with Eliquis, metoprolol, nifedipine, statin ? Given her hyponatremia we will hold her triamterene and hydrochlorothiazide, may end up swapping these medications for Lasix on discharge ? Fluid restriction to 1500 ? Will obtain an echo tomorrow for our records that she sees a corrections nurse in [place] 2. Hypothyroidism ? Continue with her Synthroid ? Will obtain a TSH 3. Anxiety/depression ? Stable ? Continue Zoloft DVT: Eliquis 75 minutes was spent on direct patient care, including documentation as well as chart review and collaboration with colleagues Charges/Coding Visit Charges Inpatient E&M: 59628 Init Hosp L3
[2024-05-02] MEDS: 0.9% Saline Lock 10 ML Syringe IV (18:06)
[2024-05-02] MEDS: Acetaminophen 325 MG Tablet 650 MG PO (18:50)
[2024-05-02] MEDS: Ipratropium/Albuterol Sulfate 3 ML AMPUL.NEB INHALATION (19:03)
[2024-05-02 19:48] LABS: Free T3 1.5 pg/mL (2.18-3.98); T4 Free Direct 1.42 ng/dL (0.76-1.46)
[2024-05-02] MEDS: Pravastatin 20 MG Tablet 10 MG PO (22:04)
[2024-05-02] MEDS: APIXABAN 5 MG TABLET PO (22:05)
[2024-05-03] VITALS (8 sets, daily range): BP systolic 107–147; BP diastolic 50–86; PULSE 78–91; RESP 16–20; TEMP 36.7–36.8; O2SAT 85–98; BMI 32.5
[2024-05-03 01:34] LABS: Bacteria 0 SEEN /hpf (None Seen); Mucous, Urine 0 SEEN /hpf (<or=2+); Red Blood Cells-Urine 0 SEEN /hpf (0-5); Squamous Epithelial Cells - UA 0 SEEN /hpf (5-10); White Blood Cells 0 SEEN /hpf (0-5)
[2024-05-03 01:37] LABS: Color, Urine Yellow (Yellow); Glucose, Dipstick Normal (Normal); Ketone-Dipstick Negative (Negative); Leukocyte Esterase-Dipstick 25 /ul (Negative); Nitrite-Dipstick Negative (Negative); Occult Blood-Urine Negative /ul (Negative); Protein-Dipstick Negative (Negative); Urine Bilirubin Dipstick Negative (Negative); Urine Clarity Sl. Cloudy (Clear); Urine Urobilinogen Normal (Normal); Urine pH 6.5 (5.0 - 8.0)
[2024-05-03] MEDS: Levothyroxine 88 MCG Tablet PO (06:29)
[2024-05-03 06:58] LABS: Absolute Lymphocyte Count 0.55 X10^3/uL (0.83-4.51); Absolute Neutrophil Count 5.2 X10^3/uL (2.0-7.7); Basophil# 0.03 X10^3/uL; Basophil% 0.5 % (0-1); Eosinophil# 0.11 X10^3/uL; Eosinophils% 1.7 % (0-5); Hematocrit 31.8 % (37-47); Hemoglobin 10.3 g/dL (12.0-15.0); Lymphocyte # 0.55 X10^3/ul (0.83-4.51); Lymphocyte % 8.5 % (19-41); Mean Corp Hgb Conc 32.4 g/dL (32-36); Mean Corpuscular Hgb 26.1 pg (27.0-32.0); Mean Corpuscular Volume 80.5 fL (81-99); Mean Platelet Vol. 10.8 fl (6.2-12.0); Monocyte# 0.51 X10^3/uL; Monocyte% 7.9 % (0-10); NRBC Flagged by Analyzer 0 % (0-5); Neutrophil # 5.24 X10^3/uL (2.7-7.7); Neutrophil % 81.1 % (47-70); POSITIVE DIFFERENTIAL YES; Platelet Count 167 K/mm3 (150-450); RBC Distribution Width CV 17.3 % (11.6-14.6); Red Blood Count 3.95 M/mm3 (4.2-5.4); White Blood Count 6.5 K/mm3 (4.4-11.0)
[2024-05-03] MEDS: Ipratropium/Albuterol Sulfate 3 ML AMPUL.NEB INHALATION ×3 (07:14→19:48)
[2024-05-03 07:52] LABS: Anion Gap 10 (5-15); BUN 16 mg/dL (7-18); BUN/Creat Ratio 16.4 RATIO (10-20); Calcium,Total 8.4 mg/dL (8.5-10.1); Chloride 93 mmol/L (98-107); Creatinine, Serum 0.97 mg/dL (0.55-1.02); EST Glomerular Filtration Rate 58 mL/min (>60); Est Glom Filt Rate - Afr Amer 71 mL/min (>60); Estimated Creatinine Clearance 45.11 ml/min; Glucose 101 mg/dL (74-106); Potassium 3.1 mmol/L (3.5-5.1); Sodium Level 131 mmol/L (136-145)
[2024-05-03] MEDS: APIXABAN 5 MG TABLET PO ×2 (10:08→21:04)
[2024-05-03] MEDS: Sertraline 50 MG Tablet PO (10:08)
[2024-05-03] MEDS: NIFEdipine 60 MG Tablet PO (10:08)
[2024-05-03] MEDS: Furosemide 40 MG/4 ML Vial IV ×2 (10:08→17:29)
[2024-05-03] MEDS: Aspirin E.C. 81 MG Tablet PO (10:08)
[2024-05-03] MEDS: Metoprolol(XL)Succ 50 MG Tablet PO (10:17)
--- NOTE | 2024-05-03 12:21 | CASEMGMT ---
Met with patients to complete RG form. RG form explained to who voiced understanding and signed form. Original form placed in pt?s chart and copy provided to patient. My Elias, Discharge Planning Asst
--- NOTE | 2024-05-03 12:55 | CASEMGMT ---
Social Work Pt's daughter Janna approached JOSHUA requesting referral to TCU. Per Janna, pt lives at home alone. She usually is able provide own ADLS independently and can get her own meals. Pt does not drive and dgts provide transportation and cleaning. Dgt states pt is unsteady and shaky and would benefit from short term placement. Physician notified and therapy consult ordered. Referral made to TCU and they are unable to accept pt. JOSHUA called Janna and updated to this. A list of SNF providers including quality and resource use data and consistent with the patient?s preferred geographic region, medical needs, and insurance network were provided via the [employer] Guide Link. Janna to review list and make decision if pt is to return home with HHC or go to short term SNF. JOSHUA to follow for dc planning. MIRACLE Stoner
--- NOTE | 2024-05-03 13:24 | CASEMGMT ---
Discharge Planning A list of?SNF providers including quality and resource use data and consistent with the patient's preferred geographic region, medical needs, and insurance network were provided via text message to pts daughter (Janna, ) from the [employer] Guide link. My Elias, Discharge Planning Asst.
--- NOTE | 2024-05-03 14:06 | PCM.PN.HOSP ---
Subjective Subjective Doing well, says that she is breathing little bit easier and that her edema is significantly improved Objective Data Objective Data Vital Signs: Vital Signs Temp Pulse Resp BP Pulse Ox O2 Del Method O2 Flow Rate 98.3 F 79 20 H 133/68 H 98 Nasal Cannula 2 05/03/24 10:15 05/03/24 12:56 05/03/24 12:56 05/03/24 10:17 05/03/24 10:15 05/03/24 10:15 05/03/24 12:46 Oxygen Flow Rate (L/min) [ 3 AMBULATING with Oxygen #2] Oxygen Flow Rate (L/min) [ 2 AMBULATING with Oxygen #1] Oxygen Flow Rate (L/min) [At 2 REST with Oxygen] Oxygen Flow Rate (L/min) [At 0 REST on Room Air] Oxygen Flow Rate (L/min) 2 Oxygen Delivery Method Nasal Cannula Weight: 180 lb 8.937 oz Body Mass Index (BMI) 32.5 Intake & Output: Intake and Output for Last 24 Hours 05/02/24 05/03/24 05/04/24 03:59 03:59 03:59 Intake Total 840 / 840 75 / 75 Output Total 2049 / 2049 850 / 850 Balance -1210 / -1210 -775 / -775 Lab / Micro Data 05/03/24 06:06 05/03/24 06:06 Labs: Laboratory Results - last 24 hr 05/02/24 10:00: Free T4 1.42, Free T3 pg/dL 1.5 L 05/02/24 20:30: Urine Color Yellow, Urine Clarity Sl. Cloudy, Urine pH 6.5, Ur Specific [place] 1.010, Urine Protein Negative, Urine Glucose (UA) Normal, Urine Ketones Negative, Urine Occult Blood Negative, Urine Nitrite Negative, Urine Bilirubin Negative, Urine Urobilinogen Normal, Ur Leukocyte Esterase 25 H, Urine RBC 0 SEEN, Urine WBC 0 SEEN, Ur Squamous Epith Cells 0 SEEN, Urine Bacteria 0 SEEN, Urine Mucus 0 SEEN 05/03/24 06:06: WBC 6.5, RBC 3.95 L, Hgb 10.3 L, Hct 31.8 L, MCV 80.5 L, MCH 26.1 L, MCHC 32.4, RDW Std Deviation 51.0 H, RDW Coeff of Valdemar 17.3 H, Plt Count 167, MPV 10.8, Immature Gran % (Auto) 0.300, Neut % (Auto) 81.1 H, Lymph % (Auto) 8.5 L, Winston % (Auto) 7.9, Eos % (Auto) 1.7, Baso % (Auto) 0.5, Absolute Neuts (auto) 5.2, Absolute Lymphs (auto) 0.55 L, Nucleated RBC % 0, Sodium 131 L, Potassium 3.1 L, Chloride 93 L, Carbon Dioxide 28.0, Anion Gap 10, BUN 16, Creatinine 0.97, Estim Creat Clear Calc 45.11, Est GFR (MDRD) Af Amer 71, Est GFR (MDRD) Non-Af 58 L, BUN/Creatinine Ratio 16.4, Glucose 101, Calcium 8.4 L Radiography Diagnostic Testing: Radiology Impression Echocardiogram 05/02/24 12:48 Interpretation Summary The study was technically difficult. The left ventricular ejection fraction is 60 %. Unable to assess diastolic dysfunction due to arrhythmia. Moderately dilated right ventricular cavity with moderate right ventricular systolic dysfunction. There is moderate biatrial dilatation. Moderate mitral annular calcification. Mild to moderate (1-2+) tricuspid valve insufficiency. Right ventricular systolic pressure estimated to be 56 mmHg. Aortic sclerosis, no stenosis. Ordering Physician: Isiah Hair Performed By: Alli Moore and Student Physical Exam Narrative General: Alert, Oriented x3, Cooperative, No apparent distress HEENT: Atraumatic, PERRLA, EOMI, Normocephalic Oral: Moist Mucosa Neck: Supple, No JVD Lungs:, Normal air movement, No rhonchi, No wheeze, No rales Cardiovascular: Regular rate, Regular Rhythm, Normal S1, Normal S2, No murmurs Abdomen: Soft, Non Tender, Non-Distended, No Hepato-splenomegaly Extremities: Edema, Capillary Refill Less than 3 Seconds Skin: No rashes, No breakdown Musculoskeletal: No Tenderness to Palpation of Joints or Extremities Neurological: No focal neurological deficits, Motor Exam 5/5 strength throughout, Sensory exam intact to light touch and pain Psych/Mental Status: Normal Affect, Appropriate Assessment & Plan Assessment/Plan (1) CHF exacerbation: PLAN: Plan 1. CHF exacerbation unknown type/A-fib/essential HTN/HLD ?Continue with IV Lasix twice daily ? Continue with Eliquis, metoprolol, nifedipine, statin ? Given her hyponatremia we will hold her triamterene and hydrochlorothiazide, may end up swapping these medications for Lasix on discharge ? Fluid restriction to 1500 ? Echo with an EF of 60% and an RVSP of 56 mmHg consistent with moderate pulmonary hypertension ? Family would like her evaluated by PT/OT to determine the possibility of needing extra physical therapy either at home or in a care home 2. Hypothyroidism ? Continue with her Synthroid ? TSH is elevated to 10 and T4 is normal but T3 is low will increase Synthroid to 112 mcg daily 3. Anxiety/depression ? Stable ? Continue Zoloft DVT: iKeran Charges/Coding Visit Charges Inpatient E&M: 11035 Subs Hosp L2
[2024-05-03 14:31] LABS: Magnesium 1.7 mg/dL (1.6-2.6); Phosphorus 4.4 mg/dL (2.5-4.9)
[2024-05-03] MEDS: Potassium Chloride Oral Tablet 20 MEQ 40 MEQ PO (14:37)
--- NOTE | 2024-05-03 15:53 | CASEMGMT ---
Social Work Phone call to pt's dgt Janna to discuss discharge plan. Janna has not yet made a decision. Janna to call SW once decision is made. JOSHUA to continue to follow for dc planning. MIRACLE Stoner
[2024-05-03] MEDS: Pravastatin 20 MG Tablet 10 MG PO (21:04)
[2024-05-04] VITALS (10 sets, daily range): BP systolic 111–128; BP diastolic 53–68; PULSE 74–104; RESP 16–18; TEMP 36.6–37.6; O2SAT 82–98; BMI 30.6
[2024-05-04] MEDS: Levothyroxine 112 MCG Tablet PO (06:55)
[2024-05-04] MEDS: Ipratropium/Albuterol Sulfate 3 ML AMPUL.NEB INHALATION (07:09)
[2024-05-04] MEDS: Aspirin E.C. 81 MG Tablet PO (08:37)
--- NOTE | 2024-05-04 10:21 | CASEMGMT ---
JOSHUA called patient's daughter Janna regarding SNF choices. Janna stated she left a message for case management stating patient wants to go home with home health. JOSHUA told Janna that a list will be provided to patient. Janna was concerned that she was working today and she or her sister wanted to be present for d/c instructions. JOSHUA told Janna JOSHUA can pass along a message to the physician and RN. Janessa RIBEIRO
--- NOTE | 2024-05-04 10:40 | CASEMGMT ---
Discharge Planning A list of?HH providers including quality and resource use data and consistent with the patient's preferred geographic region, medical needs, and insurance network was created in [facility] Guide.? This list was provided to the SW. My Elias Discharge Planning Asst.
[2024-05-04] MEDS: APIXABAN 5 MG TABLET PO (10:43)
[2024-05-04] MEDS: Metoprolol(XL)Succ 50 MG Tablet PO (10:44)
[2024-05-04] MEDS: NIFEdipine 60 MG Tablet PO (10:44)
[2024-05-04] MEDS: Furosemide 40 MG/4 ML Vial IV (10:44)
[2024-05-04] MEDS: Sertraline 50 MG Tablet PO (10:44)
[2024-05-04] MEDS: 0.9% Saline Lock 10 ML Syringe IV (10:52)
--- NOTE | 2024-05-04 11:00 | CASEMGMT ---
RAAD TAPIA updated by JOSHUA that patient would like to go home with HHC. RAAD TAPIA in to discuss with patient, friend at bedside. RAAD TAPIA provided HHC list to patient. Due to geographical area and limited options, patient agreeable to referrals being sent all agencies in-network with insurance. Patient states she has oxygen tank to go home with, will monitor for increase in home oxygen. Patient denied further needs or concerns.
--- NOTE | 2024-05-04 11:02 | CASEMGMT ---
Addendum entered by My Elias 05/04/24 15:25: Msg received by [facility] that they had accepted referral in error. Msg sent to [facility] at 13:37 to see if they are still able to accept. Msg left at 15:25. My Elias DC Planning Addendum entered by My Elias 05/04/24 12:28: [facility] updated that they are AOC. [facility] asked to cancel referral. My Elias DC Planning Asst. Addendum entered by My Elias 05/04/24 11:40: [facility] declined. [facility] and [facility] accepted. RN CM updated. My Elias DC Planinng Asst. Original Note: Discharge Planning HH referral sent to [facility], [facility], and [facility]. My Elias DC Planning Asst.
--- NOTE | 2024-05-04 14:44 | DCINST_ITS ---
Discharge Instructions Diet Discharge Diet: Low fat / Low cholesterol and 6 Cup Fluid Restriction Activity Discharge Activity: Return to Normal Activity Dressing / Incision Call your doctor if you observe: Fever of 101 or Higher, Shortness of breath, Dizziness, Fainting spells, Swelling in the ankles, Chest pain and Increased palpitations (irregular heartbeat) Follow Up Care Test Results: Test results from this visit will be discussed in further detail at your follow- up appointment, if applicable. Discharge Plan Admission Admit Date/Time: 05/02/24 12:04 Attending Provider: Isiah Hair Primary Care Provider: Charmaine Mancia Instructions Additional Instructions / Restrictions: Maintain a 1.5 L fluid restriction and continue with her Lasix. I recommended she follow-up with your PCP in 3 to 5 days to monitor your kidney function and electrolytes. Discharge Orders/Prescriptions Prescriptions: New levothyroxine 112 mcg Tablet 112 mcg PO DAILY@0600 30 Days Qty: 30 0RF furosemide [Lasix] 40 mg tablet 40 mg PO DAILY Qty: 30 0RF potassium chloride 20 mEq tablet extended release 20 meq PO BID Qty: 30 0RF Continued nifedipine [Procardia XL] 60 mg tablet extended release 24hr 60 mg PO DAILY ergocalciferol (vitamin D2) [Drisdol] 1,250 mcg (50,000 unit) capsule 1,250 mcg PO MO aspirin 81 mg tablet,delayed release (DR/EC) 81 mg PO DAILY magnesium oxide 400 mg (241.3 mg magnesium) tablet 400 mg PO BID apixaban 5 mg tablet 5 mg PO BID albuterol sulfate 90 mcg/actuation HFA aerosol inhaler 1 inh inhalation Q4H PRN (Reason: shortness of breath or wheezing) Qty: 8.5 3RF sertraline 50 mg tablet 50 mg PO DAILY pravastatin 10 mg tablet 10 mg PO DAILY (DME) Nebulizer machine See Rx Instructions .ROUTE .MEDSUPPLY Qty: 1 0RF Rx Instructions: As directed ipratropium-albuterol 0.5 mg-3 mg(2.5 mg base)/3 mL solution for nebulization 3 ml inhalation Q6-8H Qty: 180 6RF lorazepam 0.5 MG tablet 0.5 mg PO BID PRN (Reason: Anxiety) calcium carbonate-vitamin D3 1 TABLET tablet 1 tab PO BIDCM multivitamin with folic acid 1 TABLET tablet 1 tab PO DAILY loperamide 2 MG capsule 2 mg PO Q4H PRN (Reason: Diarrhea) acetaminophen 500 MG tablet 500 mg PO Q6H PRN PRN (Reason: Pain Or Fever) metoprolol succinate 50 mg tablet extended release 24 hr 50 mg PO DAILY Trelegy Ellipta 100-62.5-25 mcg blister with device 1 inh INHALATION DAILY Patient Comments: PT STATES THAT SHE IS SUPPOSED TO BE TAKING THIS MED. HOWEVER, SHE DOESNT FEEL LIKE THE INHALER IS DISPENSING MEDICINE VERY OFTEN. WHEN ASKED IF SHE HAS TRIED REFILLING TO TRY A DIFFERENT DEVICE, FAMILY STATES NO, SHE JUST STOPPED TAKING IT. Discontinued triamterene-hydrochlorothiazid 37.5-25 mg capsule 1 cap PO DAILY levothyroxine 88 mcg tablet 88 mcg PO DAILY Referrals / Follow Up: Charmaine Mancia MD [Primary Care Provider] - Within 1 Week Disposition Disposition (needs filled in before D/C Order can be placed): Home, Self Care
--- NOTE | 2024-05-04 16:00 | CASEMGMT ---
RN REGINA updated by discharge planning assistance that only agency to accept patient is [facility]. RN CM updated patient, daughter at bedside, patient agreeable to [facility] setup with [facility]. RN REGINA updated discharge planning lead. RN CM updated that patient will need increase in home oxygen. Script received and [place] [facility] [place] via [employer]. RN CM called and updated Daughter Janna to discharge plan, daughter voiced understanding and agreeable to plan.
--- NOTE | 2024-05-04 16:25 | PHA.DC_ITS ---
Pharmacy [facility] has performed discharge medication reconciliation and counseling for this patient. 1. FUROSEMIDE 40MG PO DAILY 2. POTASSIUM CHLORIDE 20MEQ BID 3. STOP TRIAMTERENE/HYDROCHLOROTHIAZIDE 4. LEVOTHYROXINE INCREASED TO 112MCG The patient's discharge medication list was reviewed for discrepancies and discrepancies were resolved. The patient was counseled on the following discharge medications and changes in medications for homegoing were reviewed. The Reason for Use, instructions for use, and potential side effects were reviewed for all new medications. The patient's questions regarding all of their medications were answered. The patient was able to verbally demonstrate an understanding of their discharge medications. Medications at Discharge Home Medications calcium 500 mg (as carbonate)-vitamin D3 5 mcg (200 unit) tablet 1 tab PO BIDCM supplement 08/12/14 lorazepam 0.5 mg tablet 0.5 mg PO BID PRN Anxiety 08/12/14 multivitamin with folic acid 400 mcg tablet 1 tab PO DAILY supplement 08/12/14 aspirin 81 mg tablet,delayed release 81 mg PO DAILY heart health 12/28/19 ergocalciferol (vitamin D2) 1,250 mcg (50,000 unit) capsule (Drisdol) 1,250 mcg PO MO supplement 12/28/19 nifedipine 60 mg tablet,extended release 24 hr (Procardia XL) 60 mg PO DAILY heart 12/28/19 acetaminophen 500 mg tablet 500 mg PO Q6H PRN PRN Pain Or Fever 12/31/19 loperamide 2 mg capsule 2 mg PO Q4H PRN Diarrhea 12/31/19 apixaban 5 mg tablet 5 mg PO BID blood thinner 01/29/21 magnesium oxide 400 mg (241.3 mg magnesium) tablet 400 mg PO BID supplement 01/29/21 albuterol sulfate 90 mcg/actuation aerosol inhaler 1 inh inhalation Q4H PRN shortness of breath or wheezing #8.5 grams 05/29/23 Nebulizer machine #1 ea 09/01/23 ipratropium 0.5 mg-albuterol 3 mg (2.5 mg base)/3 mL nebulization soln 3 ml inhalation Q6-8H SOB &/OR WHEEZING #180 mL 09/01/23 pravastatin 10 mg tablet 10 mg PO DAILY cholesterol 09/01/23 sertraline 50 mg tablet 50 mg PO DAILY mental health 09/01/23 fluticasone fur. 100 mcg-umeclid 62.5 mcg-vilant 25 mcg inhalat.powder (Trelegy Ellipta) 1 inh inhalation DAILY breathing 05/02/24 metoprolol succinate 50 mg tablet,extended release 24 hr 50 mg PO DAILY blood pressure 05/02/24 furosemide 40 mg tablet (Lasix) 40 mg PO DAILY #30 tabs 05/04/24 levothyroxine 112 mcg tablet 112 mcg PO DAILY@0600 30 days #30 tabs 05/04/24 potassium chloride 20 mEq tablet,extended release 20 meq PO BID #30 tabs 05/04/24
--- NOTE | 2024-05-04 16:35 | PCM.DC.SUM ---
Providers Date of Admission: 05/02/24 Primary Care Physician: Dr. Charmaine Mancia MD Reason For Visit: CHF Diagnosis Discharge Diagnosis (1) CHF exacerbation: Status: Chronic Code(s): I50.9 - Heart failure, unspecified Medications at Discharge Home Medications calcium 500 mg (as carbonate)-vitamin D3 5 mcg (200 unit) tablet 1 tab PO BIDCM supplement 08/12/14 lorazepam 0.5 mg tablet 0.5 mg PO BID PRN Anxiety 08/12/14 multivitamin with folic acid 400 mcg tablet 1 tab PO DAILY supplement 08/12/14 aspirin 81 mg tablet,delayed release 81 mg PO DAILY heart health 12/28/19 ergocalciferol (vitamin D2) 1,250 mcg (50,000 unit) capsule (Drisdol) 1,250 mcg PO MO supplement 12/28/19 nifedipine 60 mg tablet,extended release 24 hr (Procardia XL) 60 mg PO DAILY heart 12/28/19 acetaminophen 500 mg tablet 500 mg PO Q6H PRN PRN Pain Or Fever 12/31/19 loperamide 2 mg capsule 2 mg PO Q4H PRN Diarrhea 12/31/19 apixaban 5 mg tablet 5 mg PO BID blood thinner 01/29/21 magnesium oxide 400 mg (241.3 mg magnesium) tablet 400 mg PO BID supplement 01/29/21 albuterol sulfate 90 mcg/actuation aerosol inhaler 1 inh inhalation Q4H PRN shortness of breath or wheezing #8.5 grams 05/29/23 Nebulizer machine #1 ea 09/01/23 ipratropium 0.5 mg-albuterol 3 mg (2.5 mg base)/3 mL nebulization soln 3 ml inhalation Q6-8H SOB &/OR WHEEZING #180 mL 09/01/23 pravastatin 10 mg tablet 10 mg PO DAILY cholesterol 09/01/23 sertraline 50 mg tablet 50 mg PO DAILY mental health 09/01/23 fluticasone fur. 100 mcg-umeclid 62.5 mcg-vilant 25 mcg inhalat.powder (Trelegy Ellipta) 1 inh inhalation DAILY breathing 05/02/24 metoprolol succinate 50 mg tablet,extended release 24 hr 50 mg PO DAILY blood pressure 05/02/24 furosemide 40 mg tablet (Lasix) 40 mg PO DAILY #30 tabs 10/22/24 levothyroxine 112 mcg tablet 112 mcg PO DAILY@0600 30 days #30 tabs 05/04/24 potassium chloride 20 mEq tablet,extended release 20 meq PO BID #30 tabs 05/04/24 Hospital Course Operations None Procedures 2-D Echocardiogram Summary of Care Provided Minutes Spent on Discharge: 37 Hospital Course: Per HPI: ALEXANDREA GAN, is a 83 F who presents to the hospital with increasing edema. She has some increased shortness of breath however she is on baseline 2 L of oxygen and is currently requiring 2 to 3 L of oxygen. At the time my evaluation had been several hours after she had received her Lasix and she says that she is feeling much better. She states that her primary care doctor had told her to be drinking 8 cups of water every day however given her heart failure this will likely need to be 6 cups of water on discharge. She had a chest x-ray in the ED was fairly unremarkable, she did have a slightly increased BNP to over 500. Is also noted she has little bit of hyponatremia however she is on hydrochlorothiazide and is also volume overloaded so this will improve with Lasix and will hold her hydrochlorothiazide. Hospital Course: 1. Acute on chronic diastolic CHF/A-fib/essential HTN/HLD?83-year-old female presents to the hospital increasing shortness of breath and lower extremity edema. She was started on IV Lasix and feels significantly improved compared to when she came in. We discussed the role of fluid restriction to 1500 cc daily which she has agreed to. She has tolerated diuresis well and I will transition her to oral Lasix at 40 mg daily and will discontinue her hydrochlorothiazide and triamterene secondary to the hyponatremia that she presented with which is likely related to both hydrochlorothiazide as well as her volume overload. She was evaluated by PT and OT who did not recommend SNF placement. She did have an echo with an EF of 60% and RVSP of 56 mmHg consistent with moderate pulmonary hypertension and diastolic CHF. I discussed with her and her daughter the plan for discharge today they both expressed understanding the risk benefits of going home and are okay with discharge today. Will recommend outpatient follow-up with her PCP in 3 to 5 days to monitor electrolytes and kidney function and make any adjustments necessary for her medications. Her potassium was low with initiation of Lasix therefore I also gave her prescription for potassium tablets for 2 weeks. I have reviewed the oxygen testing, and this patient qualifies for the home equipment and portability. The patient is mobile in the home and the community. 2. Hypothyroidism?given her heart failure her TSH was evaluated was found to be over 10 so T3 was obtained which was low and T4 was normal, she was on Synthroid 88 mcg daily and this was increased to 112 mcg daily I recommend outpatient monitoring of her thyroid labs. Physical Exam Narrative General: Alert, Oriented x3, Cooperative, No apparent distress HEENT: Atraumatic, PERRLA, EOMI, Normocephalic Oral: Moist Mucosa Neck: Supple, No JVD Lungs:, Normal air movement, No rhonchi, No wheeze, No rales Cardiovascular: Regular rate, Regular Rhythm, Normal S1, Normal S2, No murmurs Abdomen: Soft, Non Tender, Non-Distended, No Hepato-splenomegaly Extremities: Edema, Capillary Refill Less than 3 Seconds Skin: No rashes, No breakdown Musculoskeletal: No Tenderness to Palpation of Joints or Extremities Neurological: No focal neurological deficits, Motor Exam 5/5 strength throughout, Sensory exam intact to light touch and pain Psych/Mental Status: Normal Affect, Appropriate Weight / BMI Weight Weight: 170 lb 3.15 oz Body Mass Index (BMI) 30.6 ABG / Lab / Microbiology Data 05/03/24 06:06 05/03/24 06:06 D/C Instructions Discharge Diet: Low fat / Low cholesterol and 6 Cup Fluid Restriction Call your doctor if you observe: Fever of 101 or Higher, Shortness of breath, Dizziness, Fainting spells, Swelling in the ankles, Chest pain and Increased palpitations (irregular heartbeat) Meaningful Use Info Meaningful Use Meaningful Use Diagnoses (Choose all that apply): None applicable Ischemic Stroke Statin Dosing Therapy Reference: STATIN DOSE THERAPY REFERENCE: * Patients > 75 years receive moderate or high dose statin therapy. * Patients 75 years or YOUNGER should receive HIGH intensity statin dose unless contraindicated. You will be required to document reason for non-treatment if statin daily dose does not meet guidelines. HIGH DOSE STATIN THERAPY DAILY Atorvastatin > than or = to 40 mg Rosuvastatin > than or = to 20 mg Amlodipine + Atorvastatin > than or = to 2.5/40 mg Ezetimibe + Simvastatin 10/80 mg Simvastatin 80mg Discharge Plan Admission Admit Date/Time: 05/02/24 12:04 Attending Provider: Isiah Hair Primary Care Provider: Charmaine Mancia Instructions Additional Instructions / Restrictions: Maintain a 1.5 L fluid restriction and continue with her Lasix. I recommended she follow-up with your PCP in 3 to 5 days to monitor your kidney function and electrolytes. Discharge Orders/Prescriptions Prescriptions: New levothyroxine 112 mcg Tablet 112 mcg PO DAILY@0600 30 Days Qty: 30 0RF furosemide [Lasix] 40 mg tablet 40 mg PO DAILY Qty: 30 0RF potassium chloride 20 mEq tablet extended release 20 meq PO BID Qty: 30 0RF Continued nifedipine [Procardia XL] 60 mg tablet extended release 24hr 60 mg PO DAILY ergocalciferol (vitamin D2) [Drisdol] 1,250 mcg (50,000 unit) capsule 1,250 mcg PO MO aspirin 81 mg tablet,delayed release (DR/EC) 81 mg PO DAILY magnesium oxide 400 mg (241.3 mg magnesium) tablet 400 mg PO BID apixaban 5 mg tablet 5 mg PO BID albuterol sulfate 90 mcg/actuation HFA aerosol inhaler 1 inh inhalation Q4H PRN (Reason: shortness of breath or wheezing) Qty: 8.5 3RF sertraline 50 mg tablet 50 mg PO DAILY pravastatin 10 mg tablet 10 mg PO DAILY (DME) Nebulizer machine See Rx Instructions .ROUTE .MEDSUPPLY Qty: 1 0RF Rx Instructions: As directed ipratropium-albuterol 0.5 mg-3 mg(2.5 mg base)/3 mL solution for nebulization 3 ml inhalation Q6-8H Qty: 180 6RF lorazepam 0.5 MG tablet 0.5 mg PO BID PRN (Reason: Anxiety) calcium carbonate-vitamin D3 1 TABLET tablet 1 tab PO BIDCM multivitamin with folic acid 1 TABLET tablet 1 tab PO DAILY loperamide 2 MG capsule 2 mg PO Q4H PRN (Reason: Diarrhea) acetaminophen 500 MG tablet 500 mg PO Q6H PRN PRN (Reason: Pain Or Fever) metoprolol succinate 50 mg tablet extended release 24 hr 50 mg PO DAILY Trelegy Ellipta 100-62.5-25 mcg blister with device 1 inh INHALATION DAILY Patient Comments: PT STATES THAT SHE IS SUPPOSED TO BE TAKING THIS MED. HOWEVER, SHE DOESNT FEEL LIKE THE INHALER IS DISPENSING MEDICINE VERY OFTEN. WHEN ASKED IF SHE HAS TRIED REFILLING TO TRY A DIFFERENT DEVICE, FAMILY STATES NO, SHE JUST STOPPED TAKING IT. Discontinued triamterene-hydrochlorothiazid 37.5-25 mg capsule 1 cap PO DAILY levothyroxine 88 mcg tablet 88 mcg PO DAILY Referrals / Follow Up: Charmaine Mancia MD [Primary Care Provider] - 05/10/24 3:20 pm Disposition Disposition (needs filled in before D/C Order can be placed): Home, Self Care Charges/Coding Visit Charges Inpatient E&M: 20873 Disch Hosp >30min
== END 2024-05-04 15:20 | disposition home or self-care (01) ==
LOC: ED 12:16 → PCU 12:18
PROVIDERS: Admitting Provider Family Medicine; Emergency Provider Surgery; PCP Internal Medicine; Visit Provider Family Medicine
DX: I11.0 Hypertensive heart disease with heart failure (principal); I50.33 Acute on chronic diastolic (congestive) heart failure; J44.9 Chronic obstructive pulmonary disease, unspecified; I48.91 Unspecified atrial fibrillation; D64.9 Anemia, unspecified; Z79.51 Long term (current) use of inhaled steroids; N28.9 Disorder of kidney and ureter, unspecified; E87.1 Hypo-osmolality and hyponatremia; Z79.82 Long term (current) use of aspirin; Z87.891 Personal history of nicotine dependence; G47.33 Obstructive sleep apnea (adult) (pediatric); Z79.01 Long term (current) use of anticoagulants; Z79.899 Other long term (current) drug therapy; Z99.81 Dependence on supplemental oxygen; E03.9 Hypothyroidism, unspecified; Z79.890 Hormone replacement therapy; F41.9 Anxiety disorder, unspecified; F32.A Depression, unspecified; E78.5 Hyperlipidemia, unspecified
CPT/HCPCS: 36415; 71046; 80048; 81001; 83735; 83880; 84100; 84439; 84443; 84481; 84484; 85025; 85610; 85730; 93005; 93306; 94640; 94668; 96374; 96376; 97162; 97166; 97802; 99221; 99285; Q9957; A4216; C8929; G0378; J1940

== ENCOUNTER 2025-07-11 16:13 | Emergency (ER) | payer MEDICARE, SELFPAY ==
[2025-07-11] VITALS (8 sets, daily range): BP systolic 104–134; BP diastolic 60–73; PULSE 86–109; RESP 16–19; TEMP 36.6–36.9; O2SAT 85–98; BMI 27.1
--- NOTE | 2025-07-11 16:27 | EDS_ITS ---
HPI History of Present Illness Chief Complaint: GI Bleed [facility] Medical History (Reviewed 04/13/25 @ 14:56 by Virginia De La Fuente LANDSCAPING CREW LEADER, LANDSCAPING CREW LEADER-C) Carotid stenosis, bilateral Carotid stenosis, symptomatic w/o infarct COPD (chronic obstructive pulmonary disease) Hypertension Atrial fibrillation Heart disease TIA (transient ischemic attack) Arthritis Thyroid disease History of breast cancer Carotid stenosis Home Medications ?Medication ?Instructions ?Recorded ?Last Taken ?Type calcium 500 mg (as 1 tab PO BIDCM supplement 05/01/24 History carbonate)-vitamin D3 5 mcg (200 unit) tablet lorazepam 0.5 mg tablet 0.5 mg PO BID PRN Anxiety 08/15/14 05:00 History multivitamin with folic acid 400 1 tab PO DAILY supple ment 08/12/14 05/01/24 History mcg tablet aspirin 81 mg tablet,delayed 81 mg PO DAILY heart heal th 12/28/19 05/01/24 History release ergocalciferol (vitamin D2) 1,250 1,250 mcg PO MO supp lement 12/28/19 04/26/24 History mcg (50,000 unit) capsule (Drisdol) nifedipine 60 mg tablet,extended 60 mg PO DAILY heart 12/28/19 05/01/24 History release 24 hr (Procardia XL) acetaminophen 500 mg tablet 500 mg PO Q6H PRN PRN Pain Or Fever 12/31/19 1 History loperamide 2 mg capsule 2 mg PO Q4H PRN Diarrhea Unknown History apixaban 5 mg tablet 5 mg PO BID blood thinner 05/01/24 History magnesium oxide 400 mg (241.3 mg 400 mg PO BID supplem ent 01/29/21 05/01/24 History magnesium) tablet Nebulizer machine #1 ea 09/01/23 Unknown Rx ipratropium 0.5 mg-albuterol 3 mg 3 ml inhalation Q6-8 H SOB &/OR 09/01/23 05/01/24 Rx (2.5 mg base)/3 mL nebulization WHEEZING #180 mL soln pravastatin 10 mg tablet 10 mg PO DAILY cholesterol 0 09/01/23 05/01/24 History sertraline 50 mg tablet 50 mg PO DAILY mental health 09/01/23 05/01/24 History metoprolol succinate 50 mg 50 mg PO DAILY blood pressu re 05/02/24 05/01/24 History tablet,extended release 24 hr furosemide 40 mg tablet (Lasix) 40 mg PO DAILY #30 tab s 05/04/24 Unknown Rx potassium chloride 20 mEq 20 meq PO BID #30 tabs 05/04 Unknown Rx tablet,extended release biotin 10,000 mcg capsule mcg PO 09/14/24 Unknown Hist ory fluticasone propionate 50 1 spray intranasal BID PRN 0 09/14/24 Unknown History mcg/actuation nasal spray,suspension levothyroxine 100 mcg tablet 100 mcg PO QDAY 09/14/24 Unknown History loratadine 10 mg tablet (Claritin) 10 mg PO QDAY 09/14 Unknown History simethicone 80 mg chewable tablet 80 mg PO BID-QID PRN 09/14/24 Unknown History (Gas Relief (simethicone)) albuterol sulfate 90 mcg/actuation 1 inh inhalation Q4 H PRN shortness 04/13/25 Unknown Rx aerosol inhaler of breath or wheezing #8.5 g cathy potassium chloride 20 mEq 20 meq PO BID 04/13/25 Unkno wn History tablet,extended release(part/cryst) Allergy/AdvReac Type Severity Reaction Status Date / Time erythromycin base AdvReac Nausea/Vom/ Verified 07/11/25 16:14 Diarrhea metronidazole AdvReac Swelling Verified 07/11/25 16:14 Family History Sister Arthritis Mother Diabetes CVA (cerebral vascular accident) Father Heart disease Diabetes Brother Diabetes Surgical History (Reviewed 04/13/25 @ 14:56 by Virginia De La Fuente LANDSCAPING CREW LEADER, LANDSCAPING CREW LEADER-C) History of right-sided carotid endarterectomy (~12/2019) History of appendectomy History of left total mastectomy Social History Smoking Status: Former smoker Tobacco: How many years used: 40 alcohol intake: never substance use type: does not use EXAM Physical Exam Const Vital Signs: 07/11/25 16:15 07/11/25 16:18 07/11/25 17:18 Temperature 98.5 F Temperature Source Oral Pulse Rate 109 H 108 H 91 Respiratory Rate 18 19 H Blood Pressure 134/73 H 118/73 111/61 Blood Pressure Mean 93 88 77 Pulse Ox 85 96 98 Oxygen Delivery Method Nasal Cannula Nasal Cannula Nasal Cannula Oxygen Flow Rate (L/min) 4 3 3 07/11/25 17:31 07/11/25 18:00 07/11/25 19:00 Temperature Temperature Source Pulse Rate 108 H 88 93 Respiratory Rate 16 17 Blood Pressure 116/69 104/60 Blood Pressure Mean 84 74 Pulse Ox 96 95 Oxygen Delivery Method Nasal Cannula Nasal Cannula Oxygen Flow Rate (L/min) 3 3 07/11/25 20:00 07/11/25 20:30 Temperature 98 F Temperature Source Pulse Rate 86 91 Respiratory Rate 17 19 H Blood Pressure 106/68 104/62 Blood Pressure Mean 80 76 Pulse Ox 95 95 Oxygen Delivery Method Nasal Cannula Oxygen Flow Rate (L/min) 3 MDM MDM MDM Narrative Medical decision making narrative: HISTORY OF PRESENT ILLNESS: Chief complaint: GI bleed 84-year-old female history of colectomy, CHF, SHAD, COPD (chronic oxygen therapy), hypertension, A-fib on Eliquis, TIA presents with concern for GI bleed. States she had a colon resection at [facility] 5 weeks ago. She states she typically wears 3 L at home. History is provided by the patient and her daughter. They state since her surgery 5 weeks ago she has had bright red blood per rectum. They note increased weakness. Daughter states patient lives alone. She came in today and patient was very weak. Patient notes several episodes of bright red blood per rectum per day. Notes history of a hemorrhoid. She denies new chest pain, shortness of breath. No she is been compliant with Eliquis her last dose was yesterday. She held Eliquis this morning. Denies melena. Denies vomiting. Denies abdominal pain. Denies leg swelling. REVIEW OF SYSTEMS: Pertinent positives: Blood in stool, diffuse weakness Pertinent negatives: Fever, vomiting PHYSICAL EXAM: Nursing triage notes reviewed, Vital signs reviewed Constitutional: please see mdm HENT: MMM Eyes: Pupils equal round and reactive to light, Extraocular muscles intact Neck: No stridor, no JVD, full neck ROM Lungs: Clear to auscultation, No wheezing or rales. No increased work of breathing, no conversational dyspnea, no accessory muscle use, no nasal flaring. No respiratory distress noted Heart: Regular rate and rhythm, No murmurs, No rubs and No gallops, 2+ distal pulses (radial, femoral, posterior tibial) in all extremities Abdomen: Soft, there is no tenderness, rigidity, rebound or guarding, no obvious peritoneal signs, no palpable pulsatile abdominal masses, no auscultated abdominal bruit : No CVAT Extremities: No edema Rectal: Performed finance teacher in room Laura CODE MACHINE OPERATOR present. Verbal consent obtained. Rectal exam showed no active bleeding, no bleeding hemorrhoids noted, no melena. Occult sample sent Neuro: No new focal neurological deficits, cranial nerves II through XII intact, 5/5 strength in all present extremities. Intact sensation to light touch in all present extremities, 2+ reflexes bilateral patella tendons. Skin: No rash or lesions noted MEDICAL DECISION MAKING: Chief Complaint: please see HPI External records reviewed: Reviewed prior ED visits. Reviewed outside records. Factors affecting care: As per [facility] Social determinants of health: none History obtained from others: Daughter Consults: [facility] discussed with Dr. Sharma (on-call general surgeon). General surgery at [facility]. [facility] Narrative: Patient was initially tachycardic with a heart rate of 109, saturating 85% on 4 L nasal cannula. Also in the room she was saturating 91% on 6 L by nasal cannula. Lungs were clear. Abdomen with a well-healed surgical scar. Rectal exam I considered the following differential diagnosis: Anemia, GI bleed I obtained a broad lab and imaging work to further determine if the patient was suffering from a life-threatening etiology. Initially treat the patient with a DuoNeb per her request although she was not wheezing or having signs of respiratory distress. Also gave home metoprolol as she noted she had not taken that today. ALL IMAGES (IF OBTAINED) HAVE BEEN PERSONALLY REVIEWED AND INTERPRETED BY MYSELF. CBC with leukocytosis suggestive of systemic inflammation, stable anemia no thrombocytopenia Hemoccult test positive BMP with hyponatremia otherwise no significant electrolyte or maladies, Lactate is wnl indicating no end-organ hypoperfusion and/or hypoxia. Troponins were negative making Myocard ischemia less likely BNP elevated consistent with volume overload likely due to increased ventricular stretch from poorly controlled A-fib Urinalysis shows no evidence of urinary inflammation suggestive of UTI Patient was O positive Lipase is wnl indicating no pancreatic inflammation. CT scan of the abdomen pelvis shows concern for postop infection, phlegmon versus abscess COVID/RSV/flu negative Discussed the case with [facility] and Dr. Sharma the general surgery on-call physician. They stated they cannot accept anyone in transfer as there institution is at capacity. I discussed with our general surgery Dr. Saucedo who noted the patient could be admitted here at [facility] until transport is available Given abscess I treat the patient with IV Zosyn Discussed with patient and family. Patient was alert and orient x 3 and displayed capacity to make her own medical decisions. When I noted [facility] would not accept her in a traditional transfer patient noted she would like to be discharged at this time to drive herself to [facility]'s emergency department to be admitted from the emergency department. Discussed risk and benefits of staying here being admitted and waiting on transport versus being discharged and self transporting to the ER. Patient and family were understood risk and benefits and decided to leave the emergency department this time to pursue definitive care at [facility]. The patient and/or family, caregivers express understanding. The patient and/or family, caregivers agrees with the plan. Shared decision making: I will have a discussion with the patient and or visitors regarding risk/benefits of further testing or admission. They will be made aware of of the risk/benefits inherent in this decision they will be given the opportunity to voice understanding. Total critical care time today provided was at least 60 minutes. This excludes separately billable procedures. Critical care time (if documented) is secondary to the patient having high probability of clinically significant/life threatening deterioration in the patient's condition which required my urgent intervention. Impression: 1. GI bleed 2. History of chronic anticoagulation use 3. Postop infection 4. Intra-abdominal abscess Dispo: Discharge to from the ED plan to present to [facility] ED to be evaluated by prior surgical team This note was generated with [employer] dictation software. It may contain incorrect words, spelling, and punctuation that were not noted in review of the chart prior to signing. Lab Data Labs: Laboratory Results - last 24 hr 07/11/25 07/11/25 07/11/25 17:00 17:30 18:18 WBC 13.7 H RBC 4.02 L Hgb 8.9 L Hct 29.9 L MCV 74.4 L MCH 22.1 L MCHC 29.8 L RDW Std Deviation 58.1 H RDW Coeff of Valdemar 22.1 H Plt Count 364 MPV 11.2 Immature Gran % (Auto) 1.100 H Neut % (Auto) 82.2 H Lymph % (Auto) 8.7 L [place] % (Auto) 7.1 Eos % (Auto) 0.5 Baso % (Auto) 0.4 Absolute Neuts (auto) 11.3 H Absolute Lymphs (auto) 1.20 Nucleated RBC % 0 Differential Comment SCANNED Platelet Estimate ADEQUATE Polychromasia 1+ Hypochromasia 1+ Anisocytosis 2+ PT 24.0 H INR 2.1 APTT 33.3 Sodium 132 L Potassium 4.2 Chloride 96 Carbon Dioxide 24.5 Anion Gap 12 BUN 18 Creatinine 0.76 Estim Creat Clear Calc 49.11 L Est GFR (MDRD) Non-Af 79 BUN/Creatinine Ratio 23.8 H Glucose 110 H Lactic Acid 1.1 Calcium 8.8 Total Bilirubin 0.61 AST 55 H ALT 33 Alkaline Phosphatase 172 H Troponin T High Sens 36 H Troponin T Hi Sens 2 Hr NT pro BNP II 8324 H Total Protein 7.1 Albumin 3.1 L Globulin 4.0 Albumin/Globulin Ratio 0.8 L Lipase 20 Urine Color Yellow Urine Clarity Sl. Cloudy Urine pH 6.5 Ur Specific [place] 1.005 Urine Protein 15 H Urine Glucose (UA) Normal Urine Ketones Negative Urine Occult Blood 10 H Urine Nitrite Negative Urine Bilirubin Negative Urine Urobilinogen Normal Ur Leukocyte Esterase Negative Urine RBC 0-5 SEEN Urine WBC 5-10 SEEN Ur Squamous Epith Cells 0-5 SEEN Urine Bacteria 2+ Urine Mucus 0 SEEN Blood Type Cancelled O POSITIVE Antibody Screen Cancelled NEGATIVE 07/11/25 18:53 WBC RBC Hgb Hct MCV MCH MCHC RDW Std Deviation RDW Coeff of Valdemar Plt Count MPV Immature Gran % (Auto) Neut % (Auto) Lymph % (Auto) [place] % (Auto) Eos % (Auto) Baso % (Auto) Absolute Neuts (auto) Absolute Lymphs (auto) Nucleated RBC % Differential Comment Platelet Estimate Polychromasia Hypochromasia Anisocytosis PT INR APTT Sodium Potassium Chloride Carbon Dioxide Anion Gap BUN Creatinine Estim Creat Clear Calc Est GFR (MDRD) Non-Af BUN/Creatinine Ratio Glucose Lactic Acid Calcium Total Bilirubin AST ALT Alkaline Phosphatase Troponin T High Sens Troponin T Hi Sens 2 Hr 30 H NT pro BNP II Total Protein Albumin Globulin Albumin/Globulin Ratio Lipase Urine Color Urine Clarity Urine pH Ur Specific Battiest Urine Protein Urine Glucose (UA) Urine Ketones Urine Occult Blood Urine Nitrite Urine Bilirubin Urine Urobilinogen Ur Leukocyte Esterase Urine RBC Urine WBC Ur Squamous Epith Cells Urine Bacteria Urine Mucus Blood Type Antibody Screen Radiography Diagnostic Testing: Clinical Impression(s) from Imaging Studies Chest X-Ray 07/11/25 17:09 IMPRESSION: Left axillary surgical clips are again seen. No interval osseous change is seen. The cardiomediastinal silhouette is stable, with a partially calcified aorta noted; no evidence of cardiomegaly. Chronic lung changes are likely present. Lungs are somewhat hypoinflated, but no acute pneumonic process is seen. No significant pulmonary edema is noted. No pleural effusion or pneumothorax is evident. Reading Location: [facility] Abdomen/Pelvis CT 07/11/25 17:18 IMPRESSION: 1. Postsurgical changes of the right lower quadrant with possible developing phlegmon or abscess measuring 3.4 x 4.1 x 3.8 cm. 2. Extensive sigmoid diverticulosis with diffuse wall thickening concerning for colitis. 3. Mild hepatomegaly and mild diffuse hepatic steatosis. Reading Location: [facility] Discharge Plan Triage Chief Complaint: GI Bleed Other Complaint: Wound Check ED Provider: Gary Eduardo Dx/Rx/DC Orders Clinical Impression: GI (gastrointestinal bleed), Chronic anticoagulation, Abscess, intra-abdominal, postoperative Prescriptions: No Action nifedipine [Procardia XL] 60 mg tablet extended release 24hr 60 mg PO DAILY ergocalciferol (vitamin D2) [Drisdol] 1,250 mcg (50,000 unit) capsule 1,250 mcg PO MO aspirin 81 mg tablet,delayed release (DR/EC) 81 mg PO DAILY magnesium oxide 400 mg (241.3 mg magnesium) tablet 400 mg PO BID apixaban 5 mg tablet 5 mg PO BID sertraline 50 mg tablet 50 mg PO DAILY pravastatin 10 mg tablet 10 mg PO DAILY (DME) Nebulizer machine See Rx Instructions .ROUTE .MEDSUPPLY Qty: 1 0RF Rx Instructions: As directed ipratropium-albuterol 0.5 mg-3 mg(2.5 mg base)/3 mL solution for nebulization 3 ml inhalation Q6-8H Qty: 180 6RF levothyroxine 100 mcg tablet 100 mcg PO QDAY biotin 10,000 mcg capsule PO simethicone [Gas Relief (simethicone)] 80 mg tablet,chewable 80 mg PO BID-QID PRN fluticasone propionate 50 mcg/actuation spray,suspension 1 spray intranasal BID PRN Rx Instructions: administer into each nostril loratadine [Claritin] 10 mg tablet 10 mg PO QDAY potassium chloride 20 mEq tablet,ER particles/crystals 20 meq PO BID albuterol sulfate 90 mcg/actuation HFA aerosol inhaler 1 inh inhalation Q4H PRN (Reason: shortness of breath or wheezing) Qty: 8.5 3RF lorazepam 0.5 MG tablet 0.5 mg PO BID PRN (Reason: Anxiety) calcium carbonate-vitamin D3 1 TABLET tablet 1 tab PO BIDCM multivitamin with folic acid 1 TABLET tablet 1 tab PO DAILY loperamide 2 MG capsule 2 mg PO Q4H PRN (Reason: Diarrhea) acetaminophen 500 MG tablet 500 mg PO Q6H PRN PRN (Reason: Pain Or Fever) metoprolol succinate 50 mg tablet extended release 24 hr 50 mg PO DAILY furosemide [Lasix] 40 mg tablet 40 mg PO DAILY Qty: 30 0RF potassium chloride 20 mEq tablet extended release 20 meq PO BID Qty: 30 0RF Primary Care Provider: Luba Love NP Referrals: Charmaine Mancia MD [Non-Staff, Medical] Activity Restrictions/Additional Instructions: Thank you for trusting us with your care today! Your labs and images were consistent with multiple emergency diagnoses including a GI bleed while you are on a blood thinner as well as an intra-abdominal abscess. You are given a dose of antibiotics here in the emergency department. We jointly decided that your care will be most benefited by presenting to [facility] emergency department to see your surgical team to perform your recent colon surgery at [facility]. Please drive directly to [facility] presents to the ED for further evaluation. Print Language: [place] Disposition Disposition: Home, Self Care Discharge Date/Time: 07/11/25 21:04
--- NOTE | 2025-07-11 16:45 | EKG12_ITS ---
Test Reason : GI BLEED Blood Pressure : */* mmHG Vent. Rate : 109 BPM Atrial Rate : * BPM P-R Int : * ms QRS Dur : 76 ms QT Int : 330 ms P-R-T Axes : * -77 -53 degrees QTcB Int : 444 ms Atrial fibrillation with rapid ventricular response Left axis deviation Possible Lateral infarct , age undetermined Inferior infarct , age undetermined Abnormal ECG Low voltage Confirmed by Alan Gage ([id number]), staff editor NABEEL RAGLAND ([id number]) on 07/15/2025 6:42:14 AM Referred By: Confirmed By: Alan Gage
[2025-07-11] MEDS: 0.9% Normal Saline (500mL Bag) 500 ML 1000 ML IV (17:06)
--- NOTE | 2025-07-11 17:09 | RAD_ITS ---
PROCEDURE: CHEST 1 VIEW (PORTABLE) 07/11/2025 REASON FOR EXAM: HYPOXIA TECHNIQUE: Frontal view of the chest. COMPARISON: Chest x-ray of 05/02/2024. RAD/Chest 1 View (Portable) IMPRESSION: Left axillary surgical clips are again seen. No interval osseous change is see n. The cardiomediastinal silhouette is stable, with a partially calcified aorta no gamal; no evidence of cardiomegaly. Chronic lung changes are likely present. Lungs are somewhat hypoinflated, but no acute pneumonic process is seen. No si gnificant pulmonary edema is noted. No pleural effusion or pneumothorax is evident. Reading Location: [place] [id number]
[2025-07-11 17:12] LABS: Hematocrit 29.9 % (37-47); Hemoglobin 8.9 g/dL (12.0-15.0); Immature Granulocytes Count 0.150 X10^3/uL (0.0-0.0); Mean Corp Hgb Conc 29.8 g/dL (32-36); Mean Corpuscular Volume 74.4 fL (81-99); Mean Platelet Vol. 11.2 fl (6.2-12.0); NRBC Flagged by Analyzer 0 % (0-5); POSITIVE MORPHOLOGY YES; Platelet Count 364 K/mm3 (150-450); RBC Distribution Width CV 22.1 % (11.6-14.6); RBC Distribution Width SD 58.1 fl (35.1-43.9); Red Blood Count 4.02 M/mm3 (4.2-5.4); White Blood Count 13.7 K/mm3 (4.4-11.0)
[2025-07-11 17:18] LABS: Differential Indicated SCAN CRITERIA MET
--- NOTE | 2025-07-11 17:18 | CT_ITS ---
PROCEDURE: ABDOMEN/PELVIS W IV CONT ONLY 07/11/2025 REASON FOR EXAM: RECENT SURGERY, GI BLEED TECHNIQUE: Procedure Code: [id number] Modality: CT Procedure: ABDOMEN/PELVIS W IV CONT ONLY Coronal and Sagittal reconstruction series were provided. CONTRAST: 100 cc of Isovue 370. One or more dose reduction techniques were used (e.g., Automated exposure control, adjustment of the mA and/or kV according to patient size, use of iterative reconstruction technique. COMPARISON: None available. FINDINGS: Lung bases: Bibasilar atelectasis. Liver: Mildly enlarged measuring 17.1 cm craniocaudally. Mild diffuse hepatic steatosis. No obvious hepatic mass. Gallbladder: Unremarkable. Spleen: Normal size. Pancreas: Normal size without evidence of mass surrounding inflammation or ductal dilation. Adrenals: No adrenal masses. Kidneys: Normal renal sizes. No hydronephrosis. Bladder: Unremarkable. Reproductive Organs: Normal uterine size and contour. Ovaries are unremarkable. Bowel: Extensive sigmoid diverticulosis with diffuse wall thickening concerning for colitis. Postsurgical changes of the right lower quadrant with multiloculated enhancing fluid collection measuring 3.4 x 4.1 x 3.8 cm concerning for an infectious phlegmon or abscess formation. Appendix: Not visualized. Lymph nodes: Unremarkable. Vasculature: Moderate atherosclerotic calcifications of the abdominal aorta and its branches. No aneurysm. Peritoneum / Retroperitoneum: Small volume ascites throughout the abdomen and pelvis, likely postsurgical. Bones: Degenerative changes of the spine. No acute fractures. CT/Abdomen/Pelvis W IV Cont ONLY IMPRESSION: 1. Postsurgical changes of the right lower quadrant with possible developing ph legmon or abscess measuring 3.4 x 4.1 x 3.8 cm. 2. Extensive sigmoid diverticulosis with diffuse wall thickening concerning for colitis. 3. Mild hepatomegaly and mild diffuse hepatic steatosis. Reading [facility]
[2025-07-11 17:41] LABS: Lipase 20 U/L (13-75); Pro- Brain NATRIURETIC PEPTIDE 8324 pg/mL (<=1800); Troponin T High Sensitivity 36 ng/L (<=14)
[2025-07-11 17:49] LABS: Prothrombin Time (Protime)PT. 24.0 SECONDS (11.7-14.9)
[2025-07-11 17:50] LABS: Partial Thromboplast Time 33.3 Seconds (24.1-36.2)
[2025-07-11 18:28] LABS: Mucous, Urine 0 SEEN /hpf (<or=2+)
[2025-07-11 18:45] LABS: Differential Comment SCANNED
[2025-07-11 18:46] LABS: Anisocytosis 2+; Hypochromasia 1+
[2025-07-11 18:47] LABS: Polychromasia 1+
[2025-07-11 19:09] LABS: AST(SGOT) 55 U/L (<=31); Alanine Aminotransfer ALT/SGPT 33 U/L (<=34); Albumin, Serum 3.1 g/dL (3.4-4.8); Alkaline Phosphatase 172 U/L (35-104); BUN 18 mg/dL (4-19); BUN/Creat Ratio 23.8 RATIO (10-20); Calcium,Total 8.8 mg/dL (7.6-11.0); Carbon Dioxide 24.5 mmol/L (20.0-29.0); Estimated Creatinine Clearance 49.11 ml/min (50-250); Globulin 4.0 g/dL (2.2-4.2); Glucose 110 mg/dL (70-99)
[2025-07-11 19:17] LABS: Anion Gap 12 (7-18); Chloride 96 mmol/L (96-106); Potassium 4.2 mmol/L (3.5-5.1)
[2025-07-11 19:20] LABS: Troponin T High Sens 2 HR 30 ng/L (<=14)
[2025-07-11 19:31] LABS: Color, Urine Yellow (Yellow); Glucose, Dipstick Normal (Normal); Ketone-Dipstick Negative (Negative); Leukocyte Esterase-Dipstick Negative /ul (Negative); Nitrite-Dipstick Negative (Negative); Occult Blood-Urine 10 /ul (Negative); Protein-Dipstick 15 mg/dl (Negative); Specific Gravity, Urine 1.005 (1.002-1.030); Urine Bilirubin Dipstick Negative (Negative)
[2025-07-11 19:53] LABS: Red Blood Cells-Urine 0-5 SEEN /hpf (0-5); Squamous Epithelial Cells - UA 0-5 SEEN /hpf (5-10)
[2025-07-11] MEDS: Piperacil/Tazobactam 4.5 GM in 0.9% Normal Saline (100mL MB+) 100 ML IV (20:13)
== END 2025-07-11 21:04 | disposition home or self-care (01) ==
PROVIDERS: Emergency Provider Emergency Medicine; PCP Nurse Practitioner Primary Care; Visit Provider Emergency Medicine
DX: T81.43XA Infection following a procedure, organ and space surgical site, initial encounter (principal); I50.9 Heart failure, unspecified; I11.0 Hypertensive heart disease with heart failure; K65.1 Peritoneal abscess; J44.9 Chronic obstructive pulmonary disease, unspecified; I48.91 Unspecified atrial fibrillation; Z79.01 Long term (current) use of anticoagulants; Z87.891 Personal history of nicotine dependence; Z90.49 Acquired absence of other specified parts of digestive tract; E87.1 Hypo-osmolality and hyponatremia; Y83.6 Removal of other organ (partial) (total) as the cause of abnormal reaction of the patient, or of later complication, without mention of misadventure at the time of the procedure; K92.1 Melena; Z99.81 Dependence on supplemental oxygen; R53.1 Weakness; R16.0 Hepatomegaly, not elsewhere classified; K76.0 Fatty (change of) liver, not elsewhere classified
CPT/HCPCS: 71045; 74177; 80053; 81001; 82274; 83605; 83690; 83880; 84484; 85025; 85610; 85730; 86850; 86900; 86901; 87040; 87077; 87086; 87088; 87186; 87631; 93005; 94640; 96361; 96365; 99284; Q9967; A4216